=== PATIENT | female | born 1940 | race African-American/Black ===

== ENCOUNTER 2017-02-14 03:07 | Emergency (ER) | payer BC, OTHER ==
[2017-02-14 04:10] VITALS: TEMP 98.2; BMI 32.1
--- NOTE | 2017-02-14 04:30 | PDOC ---
History of Present Illness - General History Source: Patient Exam Limitations: No Limitations - History of Present Illness Initial Comments: 02/14/17 05:03 The patient is a 76-year-old female, with a significant past medical history of asthma, gerd, HTN, anxiety, and depression, who presents to the ED with complaints of nausea, vomiting, shortness of breath due to withdrawal from her klonopin medication. The patient has not been on her medication for 5 days since she has not been able to get a prescription for the medication. She denies any dizziness or lightheadedness. Denies any fever, chills, diarrhea , or abdominal pain. <Margie Hinojosa - Last Filed: 02/14/17 05:37> <Jade Mcneal - Last Filed: 02/15/17 06:39> - General Chief Complaint: Chronic pain Stated Complaint: WITHDRAWAL Time Seen by Provider: 02/14/17 03:32 Past History <Margie Hinojosa - Last Filed: 02/14/17 05:37> - Past Medical History COPD: No Psychiatric Problems: Yes (Depression, anxiety) Other medical history: S spine, tendonitis, bursitis, arthritis - Suicide/Smoking/Psychosocial Hx Smoking History: Current some day smoker Have you smoked in the past 12 months: No Number of Cigarettes Smoked Daily: 3 Information on smoking cessation initiated: No Hx Alcohol Use: No Drug/Substance Use Hx: No Substance Use Type: None <Jade Mcneal - Last Filed: 02/15/17 06:39> - Past Medical History Allergies/Adverse Reactions: Allergies Allergy/AdvReac Type Severity Reaction Status Date / Time No Known Allergies Allergy Verified 02/14/17 03:34 Home Medications: Ambulatory Orders Clonazepam [Klonopin] 1 mg PO TID 02/14/17 Hydroxyzine Pamoate [Vistaril -] 25 mg PO TID PRN #6 capsule 02/14/17 Isosorbide Mononitrate [Imdur -] 30 mg PO DAILY 02/14/17 Lisinopril [Prinivil] 5 mg PO DAILY 02/14/17 Metoprolol Tartrate [Lopressor -] 25 mg PO DAILY 02/14/17 Montelukast Na [Singulair -] 10 mg PO HS 02/14/17 Omeprazole 20 mg PO DAILY 02/14/17 Venlafaxine HCl ER [Effexor Xr -] 75 mg PO TID 02/14/17 Review of Systems - Review of Systems Able to Perform ROS?: Yes Comments:: 02/14/17 05:04 CONSTITUTIONAL: Absent: fever, no chills, no fatigue EYES: Absent: visual changes ENT: Absent: ear pain, no sore throat CARDIOVASCULAR: Absent: chest pain, no palpitations RESPIRATORY: Present: shortness of breath Absent: cough GI: Absent: abdominal pain, no nausea, no vomiting, no constipation, no diarrhea GENITOURINARY: Absent: dysuria, no frequency, no hematuria MUSKULOSKELETAL: Absent: back pain, no arthralgia, no myalgia SKIN: Absent: rash NEURO: Absent: headache <Margie Hinojosa - Last Filed: 02/14/17 05:37> *Physical Exam - Vital Signs Last Vital Signs Temp Pulse Resp BP Pulse Ox 98.2 F 64 18 153/91 100 02/14/17 03:34 02/14/17 03:34 02/14/17 03:34 02/14/17 03:34 02/14/17 03:34 - Physical Exam Comments: 02/14/17 05:05 GENERAL: Well-appearing, well-nourished. No apparent distress. HEENT: Normocephalic, atraumatic. PERRL, EOM intact. CARDIOVASCULAR: Normal S1, S2. Regular rate and rhythm. PULMONARY: Clear to auscultation bilaterally. ABDOMEN: Soft, non-distended, non-tender. EXTREMITIES: Normal ROM in all four extremities. No gross deformities. SKIN: Warm, dry. No rash NEUROLOGICAL: No focal neurological deficits. <Margie Hinojosa - Last Filed: 02/14/17 05:37> - Vital Signs Last Vital Signs Temp Pulse Resp BP Pulse Ox 98.2 F 64 18 153/91 100 02/14/17 03:34 02/14/17 03:34 02/14/17 03:34 02/14/17 03:34 02/14/17 03:34 <Jade Mcneal - Last Filed: 02/15/17 06:39> ED Treatment Course - LABORATORY CBC & Chemistry Diagram: 02/14/17 06:35 02/14/17 06:35 <Jade Mcneal - Last Filed: 02/15/17 06:39> Medical Decision Making - Medical Decision Making 02/14/17 07:12 Pt understands that I will not be giving her klonopin. Instead Vistaril. We are checking labs and UTOX. Pt will be encouraged to go to detox once her workup is complete. <Jade Mcneal - Last Filed: 02/15/17 06:39> *DC/Admit/Observation/Transfer - Attestations Scribe Attestion: 02/14/17 05:05 Documentation prepared by Margie Hinojosa, acting as medical management specialist for Jade Mcneal MD. <Margie Hinojosa - Last Filed: 02/14/17 05:37> <Jade Mcneal - Last Filed: 02/15/17 06:39> Diagnosis at time of Disposition: Marijuana use, Anxiety - Discharge Dispostion Disposition: HOME Condition at time of disposition: Stable - Prescriptions Prescriptions: Hydroxyzine Pamoate [Vistaril -] 25 mg PO TID PRN #6 capsule PRN Reason: Anxiety - Referrals Referrals: Marcos Christie MD [Primary Care Provider] - - Patient Instructions Printed Discharge Instructions: DI for Anxiety -- Adult, DI for Adverse Drug Reaction -- Other Additional Instructions: Please take all meds as prescribed. Please stop smoking marijuana. Please follow up with your PMD as scheduled.
[2017-02-14] MEDS ORDERED: SODIUM CHLORIDE 0.9% 1000 ML INFUS.BAG IV ONE (05:37)
[2017-02-14] MEDS ORDERED: hydrOXYzine PAMOATE 50 MG CAPSULE (FP) PO ONE (05:54)
[2017-02-14] MEDS ORDERED: hydrOXYzine PAMOATE 25 MG CAPSULE (FP) PO ONE (06:15)
[2017-02-14 06:48] LABS: BASO % 0.2 % (0-2.0); EOS % 0.1 % (0-4.5); MCH 29.5 pg (25.7-33.7); MCHC 32.7 g/dl (32.0-36.0); MEAN CELL VOLUME 90.2 fl (80-96); MEAN PLT VOLUME 10.1 fl (7.5-11.1); MONO # 0.4 # (3.8-10.2); NEUT # 10.3 # (42.8-82.8); PLATELET COUNT 236 K/MM3 (134-434); RDW 14.3 % (11.6-15.6); WHITE BLOOD COUNT 11.7 K/mm3 (4.0-10.0)
[2017-02-14 07:13] LABS: ALBUMIN 3.8 g/dl (3.4-5.0); ANION GAP 7 (8-16); BILIRUBIN,TOTAL 0.3 mg/dL (0.2-1.0); CALCIUM 8.3 mg/dL (8.5-10.1); CO2 27 mmol/L (21-32); CREATININE 0.6 mg/dL (0.55-1.02); GLUCOSE,RANDOM 187 mg/dL (74-106); SGPT/ALT 22 U/L (12-78); TOT PROT 6.6 g/dl (6.4-8.2)
[2017-02-14 07:14] LABS: ALK PHOS 102 U/L (45-117)
[2017-02-14 07:28] LABS: SGOT/AST 21 U/L (15-37)
--- NOTE | 2017-02-14 08:02 | PDOC ---
*Physical Exam - Vital Signs Last Vital Signs Temp Pulse Resp BP Pulse Ox 98.2 F 64 18 153/91 100 02/14/17 03:34 02/14/17 03:34 02/14/17 03:34 02/14/17 03:34 02/14/17 04:44 - Physical Exam Comments: 02/14/17 08:00 gen: aaox3, nad heart: +s1s2 reg lungs: cta b/l abd: soft, nt/nd ext: no c/c/e psych: mildly anxious ED Treatment Course - LABORATORY CBC & Chemistry Diagram: 02/14/17 06:35 02/14/17 06:35 - ADDITIONAL ORDERS Additional order review: Laboratory Results 02/14/17 06:35 Sodium 141 Potassium 3.6 Chloride 107 Carbon Dioxide 27 Anion Gap 7 L BUN 7 Creatinine 0.6 Creat Clearance w eGFR > 60 Random Glucose 187 H Calcium 8.3 L Total Bilirubin 0.3 AST 21 ALT 22 Alkaline Phosphatase 102 Total Protein 6.6 Albumin 3.8 02/14/17 06:35 RBC 4.76 MCV 90.2 MCHC 32.7 RDW 14.3 MPV 10.1 Neutrophils % 88.0 H Lymphocytes % 8.3 Monocytes % 3.4 L Eosinophils % 0.1 Basophils % 0.2 - Medications Given in the ED: ED Medications Discontinued Medications Generic Name Dose Route Start Last Admin Trade Name Henryq PRN Reason Stop Dose Admin Hydroxyzine Pamoate 50 mg 02/14/17 06:15 02/14/17 06:26 Vistaril - PO 02/14/17 06:16 50 mg ONCE ONE Administration Sodium Chloride 500 ml 02/14/17 05:37 02/14/17 06:16 Normal Saline - IV 02/14/17 05:38 500 ml ONCE ONE Administration Medical Decision Making - Medical Decision Making 02/14/17 08:01 a/p: 76yo female with klonopin use daily who ran out of klonopin x 1 week -given vistaril overnight and feeling better -requesting to go to detox. 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 02/14/17 08:37 pt utox negative for benzos +THC discussed with patient who states she does smoke marijuana no benzo so no longer withdrawal from benzos has appt with PMD for thursday stable for d/c to home discussed with the patient and the daughter all reasons to return to the ED and need for follow up with her PMD. Will give small Rx for vistaril to help with anxiety over the weekend. Has effexor at home discussed stopping using THC. 02/14/17 08:41 detox updated on plan *DC/Admit/Observation/Transfer Diagnosis at time of Disposition: Marijuana use, Anxiety - Discharge Dispostion Disposition: HOME Condition at time of disposition: Stable Admit: No - Prescriptions Prescriptions: Hydroxyzine Pamoate [Vistaril -] 25 mg PO TID PRN #6 capsule PRN Reason: Anxiety - Referrals Referrals: Marcos Christie MD [Primary Care Provider] - - Patient Instructions Printed Discharge Instructions: DI for Anxiety -- Adult, DI for Adverse Drug Reaction -- Other Additional Instructions: Please take all meds as prescribed. Please stop smoking marijuana. Please follow up with your PMD as scheduled. - Post Discharge Activity
[2017-02-14 08:08] LABS: URINE MARIJUANA THC POSITIVE ng/ml (CUTOFF=50)
[2017-02-14 08:35] LABS: CPK 62 IU/L (26-192); TROPONIN I < 0.02 ng/ml (0.00-0.05)
[2017-02-14 09:11] VITALS: BP 149/70; PULSE 91
--- NOTE | 2017-02-14 16:31 | EKG ---
Test Reason : Blood Pressure : / mmHG Vent. Rate : 089 BPM Atrial Rate : 089 BPM P-R Int : 118 ms QRS Dur : 062 ms QT Int : 366 ms P-R-T Axes : 040 034 040 degrees QTc Int : 445 ms POOR DATA QUALITY, INTERPRETATION MAY BE ADVERSELY AFFECTED NORMAL SINUS RHYTHM NONSPECIFIC ST ABNORMALITY ABNORMAL ECG WHEN COMPARED WITH ECG OF 15-DEC-2005 07:43, NON-SPECIFIC CHANGE IN ST SEGMENT IN ANTERIOR LEADS Confirmed by KEHINDE DING MD ([id number]) on 02/14/2017 4:31:18 PM Referred By: Confirmed By:KEHINDE DING MD
== END 2017-02-14 09:11 | disposition home or self-care (01) ==
LOC: JER 03:07
DX: F12.10 Cannabis abuse, uncomplicated (principal); F13.10 Sedative, hypnotic or anxiolytic abuse, uncomplicated; F41.8 Other specified anxiety disorders
CPT/HCPCS: 36415; 80053; 80307; 82550; 84484; 85025; 93005; 93010; 99285-25

== ENCOUNTER 2017-02-19 05:23 | Emergency (ER) | payer OTHER ==
[2017-02-19 05:34] VITALS: BMI 23.6
--- NOTE | 2017-02-19 05:43 | PDOC ---
Attending Attestation - HPI HPI: 02/19/17 05:48 76 y.o female with significant PMHx of anxiety, depression, asthma, HTN, and GERD, who presents to the emergency room BIBA complaining of shortness of breath and shakiness stating that she ran out of vistaril prescription. Pt was seen in the ED 2 weeks ago after withdrawing from Klonapin medications. She was given a prescription of vistaril, but has since run out. <Leena Mcdonough - Last Filed: 02/19/17 05:48> - Resident Resident Name: Gagan Rojas - ED Attending Attestation I have performed the following: I have examined & evaluated the patient, The case was reviewed & discussed with the resident, I agree w/resident's findings & plan, Exceptions are as noted - Physicial Exam PE: 02/19/17 19:44 Physical Exam General Appearance: Yes: Appropriately Dressed. No: Apparent Distress, Intoxicated HEENT: positive: EOMI, ROSIE, Normal ENT Inspection, Normal Voice, TMs Normal, Pharynx Normal. negative: Pale Conjunctivae, Photophobia, Scleral Icterus (R), Scleral Icterus (L) Neck: positive: Trachea midline, Normal Thyroid, Supple. negative: Tender, Rigid, Carotid bruit, Stridor, Lymphadenopathy (R), Lymphadenopathy (L), Thyromegaly Respiratory/Chest: positive: Lungs Clear, Normal Breath Sounds. negative: Chest Tender, Respiratory Distress, Accessory Muscle Use, Labored Respiration, RES, Crackles, Rales, Rhonchi, Stridor, Wheezing, Dullness Cardiovascular: positive: Regular Rhythm, Regular Rate, S1, S2. negative: Edema , JVD, Murmur, Bradycardia, Tachycardia Vascular Pulses: Dorsalis-Pedis (R): 2+, Doralis-Pedis (L): 2+ Gastrointestinal/Abdominal: positive: Normal Bowel Sounds, Flat, Soft. negative : Tender, Organomegaly, Pulsatile Mass, Increased Bowel Sounds, Decreased BS, Distended, Guarding, Rebound, Hernia, Hepatomegaly, Spleenomegaly Lymphatic: negative: Adenopathy, Tenderness Musculoskeletal: positive: Normal Inspection. negative: CVA Tenderness, Decreased Range of Motion Extremity: positive: Normal Capillary Refill, Normal Inspection, Normal Range of Motion, Pelvis Stable. negative: Tender, Pedal Edema, Swelling, Erythema Integumentary: positive: Normal Color, Dry, Warm. negative: Cyanotic, Erythema , Jaundice, Rash Neurologic: positive: crushed stone grader II-XII NML intact, Fully Oriented, Alert, Normal Mood/ Affect, Motor Strength 5/5. negative: EOM Palsy, Facial Droop, Sensory Deficit - Medical Decision Making 02/19/17 19:44 Pt treated and released <Korey Gonzalez - Last Filed: 02/19/17 19:45>
[2017-02-19] MEDS ORDERED: hydrOXYzine PAMOATE 25 MG CAPSULE (FP) PO ONE (05:44)
--- NOTE | 2017-02-19 05:44 | PDOC ---
History of Present Illness - General Chief Complaint: Psychiatric Stated Complaint: ANXIETY Time Seen by Provider: 02/19/17 05:36 - History of Present Illness Initial Comments: 02/19/17 05:55 The patient is a 76 year old female with a history of anxiety, depression, HTN, who presents for evaluation of anxiety. The patient was recently seen in the ED on 02/14 for klonapin withdrawal and anxiety. She was discharged at that time on vistiril. The patient reports that she ran out of the vistiril several days ago and since then, has been experiencing increasing anxiety and feelings of doom. She reports that it worsened this morning prompting her presentation to the ED this morning. She denies fevers, chills, chest pain, abdominal pain, or changes with urination or bowel movements. Past History - Past Medical History Allergies/Adverse Reactions: Allergies Allergy/AdvReac Type Severity Reaction Status Date / Time No Known Allergies Allergy Verified 02/19/17 05:30 Home Medications: Ambulatory Orders Hydroxyzine Pamoate [Vistaril -] 25 mg PO TID PRN #6 capsule 02/14/17 Isosorbide Mononitrate [Imdur -] 30 mg PO DAILY 02/14/17 Lisinopril [Prinivil] 5 mg PO DAILY 02/14/17 Metoprolol Tartrate [Lopressor -] 25 mg PO DAILY 02/14/17 Montelukast Na [Singulair -] 10 mg PO HS 02/14/17 Omeprazole 20 mg PO DAILY 02/14/17 Venlafaxine HCl ER [Effexor Xr -] 75 mg PO TID 02/14/17 Hydroxyzine Pamoate [Vistaril -] 25 mg PO TID PRN #15 capsule 02/19/17 COPD: No Psychiatric Problems: Yes (Depression, anxiety) - Suicide/Smoking/Psychosocial Hx Smoking History: Current some day smoker Have you smoked in the past 12 months: Yes Number of Cigarettes Smoked Daily: 3 Information on smoking cessation initiated: No Hx Alcohol Use: No Drug/Substance Use Hx: No Substance Use Type: None Review of Systems - Review of Systems Comments:: 02/19/17 06:00 Constitutional: No fevers, chills, fatigue, malaise HEENT: No Rhinorrhea, nasal congestion, visual changes Cardiovascular: No chest pain, syncope, palpitations, lightheadedness Respiratory: No Cough, SOB, Hemoptysis, Gastrointestinal: No Abdominal pain, Nausea, Vomiting, Constipation, Diarrhea, Melena Genitourinary: No Dysuria, Frequency, Urgency, Hesitancy, Hematuria, Flank pain Musculoskeletal: No Myalgia, arthralgia Skin: No rashes, bruising, pallor Neurologic: No Headache, Dizziness, Numbness, Weakness, or Tingling Psychiatric: Anxiety. No Hallucinations. No SI or HI *Physical Exam - Vital Signs Last Vital Signs Temp Pulse Resp BP Pulse Ox 98.8 F 102 H 28 H 174/110 98 02/19/17 05:32 02/19/17 05:32 02/19/17 05:32 02/19/17 05:32 02/19/17 05:32 - Physical Exam Comments: 02/19/17 06:02 General Appearance: Nourished. No Apparent Distress HEENT: EOMI, ROSIE. No Pharyngeal Erythema, Tonsillar Exudate, Tonsillar Erythema Neck: No Cervical Lymphadenopathy Respiratory/Chest: Lungs Clear, Normal Breath Sounds. No Crackles, Rales, Rhonchi, Wheezing Cardiovascular: Regular Rhythm, Tachycardic. No Murmur, Gallops, Rubs Gastrointestinal/Abdominal: Normal Bowel Sounds, Soft. No Guarding, Rebound, Tenderness Musculoskeletal: No CVA Tenderness Extremity: Normal Capillary Refill Integumentary: Normal Color, Dry, Warm Neurologic: Fully Oriented, Alert, Normal Mood/Affect, Normal Response, Medical Decision Making - Medical Decision Making 02/19/17 06:02 The patient is a 76 year old female with a history of anxiety, depression, HTN, who presents for evaluation of anxiety. Given the patient's history of increased anxiety after running out of her vistiril, her symptoms are likely due to an anxiety attack. We will treat her here in the ED with vistiril and continue to monitor and reassess. 02/19/17 06:48 Patient signed out to the day team pending reassessment. *DC/Admit/Observation/Transfer Diagnosis at time of Disposition: Anxiety - Discharge Dispostion Disposition: HOME Condition at time of disposition: Good - Prescriptions Prescriptions: Hydroxyzine Pamoate [Vistaril -] 25 mg PO TID PRN #15 capsule PRN Reason: Anxiety - Referrals Referrals: Marcos Christie MD [Primary Care Provider] - - Patient Instructions Printed Discharge Instructions: DI for Anxiety -- Adult Additional Instructions: Please return if you have any new, worsening or concerning symptoms. Please follow up as you've already scheduled for on Thursday. - Post Discharge Activity
[2017-02-19 08:04] VITALS: BP 134/94; PULSE 71; TEMP 97.7
--- NOTE | 2017-02-19 08:40 | PDOC ---
*Physical Exam - Vital Signs Last Vital Signs Temp Pulse Resp BP Pulse Ox 97.7 F 71 17 134/94 99 02/19/17 08:03 02/19/17 08:03 02/19/17 08:03 02/19/17 08:03 02/19/17 08:03 - Physical Exam Comments: 02/19/17 08:37 PSYCH: No SI/HI. Appropriate affect GENERAL: Awake, alert, and fully oriented, in no acute distress HEAD: No signs of trauma, normocephalic, atraumatic EYES: PERRLA, EOMI, sclera anicteric, conjunctiva clear NEUROLOGICAL: Cranial nerves II through XII grossly intact. Normal speech, normal gait, no focal sensorimotor deficits SKIN: Warm, Dry, normal turgor, no rashes or lesions noted. ED Treatment Course - Medications Given in the ED: ED Medications Discontinued Medications Generic Name Dose Route Start Last Admin Trade Name Freq PRN Reason Stop Dose Admin Hydroxyzine Pamoate 25 mg 02/19/17 05:44 02/19/17 05:55 Vistaril - PO 02/19/17 05:45 25 mg ONCE ONE Administration Medical Decision Making - Medical Decision Making 02/19/17 08:[address] Rojas. Patient came in complaining of anxiety. Reassessment pending. Patient reports feeling much better, wants to go home. Denies SI/HI. Asked for prescription renewal of hydroxyzine. Has follow up scheduled for Thursday. *DC/Admit/Observation/Transfer Diagnosis at time of Disposition: Anxiety - Discharge Dispostion Disposition: HOME Condition at time of disposition: Good Admit: No - Prescriptions Prescriptions: Hydroxyzine Pamoate [Vistaril -] 25 mg PO TID PRN #15 capsule PRN Reason: Anxiety - Referrals Referrals: Marcos Christie MD [Primary Care Provider] - - Patient Instructions Printed Discharge Instructions: DI for Anxiety -- Adult Additional Instructions: Please return if you have any new, worsening or concerning symptoms. Please follow up as you've already scheduled for on Thursday. - Post Discharge Activity
== END 2017-02-19 09:13 | disposition home or self-care (01) ==
LOC: JER 05:23
DX: F17.210 Nicotine dependence, cigarettes, uncomplicated (principal); F41.8 Other specified anxiety disorders
CPT/HCPCS: 99282-25

== ENCOUNTER 2017-02-27 16:44 | Inpatient (IN) | payer OTHER, BC ==
--- NOTE | 2017-02-27 17:46 | PDOC ---
History of Present Illness - General Chief Complaint: Chronic pain Stated Complaint: LOWER BACK PAIN Time Seen by Provider: 02/27/17 17:19 History Source: Patient Exam Limitations: No Limitations - History of Present Illness Initial Comments: 02/27/17 17:36 The patient is a 76F with a PMH of anxiety, depression, asthma, HTN, GERD, and chronic back pain who presents to the ED with acutely worsening back pain. The patient states that her back pain worsened this morning, starts in her lower spine and radiates down both her legs and up her spine. She denies saddle anesthesia, IVDU, fever, chills, hx of cancer, incontinence. Past History - Past Medical History Allergies/Adverse Reactions: Allergies Allergy/AdvReac Type Severity Reaction Status Date / Time No Known Allergies Allergy Verified 02/27/17 16:56 Home Medications: Ambulatory Orders Isosorbide Mononitrate [Imdur -] 30 mg PO DAILY 02/14/17 Lisinopril [Prinivil] 5 mg PO DAILY 02/14/17 Metoprolol Tartrate [Lopressor -] 25 mg PO DAILY 02/14/17 Montelukast Na [Singulair -] 10 mg PO HS 02/14/17 Omeprazole 20 mg PO DAILY 02/14/17 Venlafaxine HCl ER [Effexor Xr -] 75 mg PO TID 02/14/17 Hydroxyzine Pamoate [Vistaril -] 25 mg PO TID PRN #15 capsule 02/19/17 COPD: No Psychiatric Problems: Yes (Depression, anxiety) - Suicide/Smoking/Psychosocial Hx Smoking History: Current some day smoker Have you smoked in the past 12 months: Yes Number of Cigarettes Smoked Daily: 3 Information on smoking cessation initiated: No Hx Alcohol Use: No Drug/Substance Use Hx: No Substance Use Type: None Review of Systems - Review of Systems Able to Perform ROS?: Yes Comments:: 02/27/17 23:21 GENERAL/CONSTITUTIONAL: No fever or chills. No weakness. HEAD, EYES, EARS, NOSE AND THROAT: No change in vision. No ear pain or discharge. No sore throat. GASTROINTESTINAL: No nausea, vomiting, diarrhea, constipation, or abdominal pain. GENITOURINARY: No dysuria, frequency, hematuria, or change in urination. CARDIOVASCULAR: No chest pain, palpitations, or lightheadedness. RESPIRATORY: No cough, wheezing, shortness of breath, or hemoptysis. MUSCULOSKELETAL: Positive for back pain. No joint or muscle swelling or pain. SKIN: No rash or lesions. NEUROLOGIC: No headache, numbness, tingling, weakness, loss of consciousness, or change in strength/sensation. ENDOCRINE: No increased thirst. No abnormal weight change. HEMATOLOGIC/LYMPHATIC: No anemia, easy bleeding, or history of blood clots. ALLERGIC/IMMUNOLOGIC: No hives or skin allergy. Is the patient limited Frisian proficient: No *Physical Exam - Vital Signs Last Vital Signs Temp Pulse Resp BP Pulse Ox 98.7 F 87 18 153/74 97 02/27/17 16:45 02/27/17 16:45 02/27/17 16:45 02/27/17 16:45 02/27/17 16:45 - Physical Exam Comments: 02/27/17 23:23 GENERAL: Well developed, well nourished. Awake and alert. In mild distress, bedbound. HEENT: Normocephalic, atraumatic. Hearing grossly normal. Moist mucous membranes. NECK: Supple. Full ROM. No JVD. CARDIOVASCULAR: Regular rate and rhythm. No murmurs, rubs, or gallops. PULMONARY: No evidence of respiratory distress. Lungs clear to auscultation bilaterally. ABDOMINAL: Soft. Non-tender. Non-distended. No rebound or guarding. No organomegaly. Normoactive bowel sounds. GENITOURINARY: No CVA tenderness bilaterally. MUSCULOSKELETAL: Tenderness to palpation over L spine. EXTREMITIES: No cyanosis. No clubbing. No edema. No calf tenderness. SKIN: Warm and dry. Normal capillary refill. No rashes. No jaundice. NEUROLOGICAL: Alert, awake, appropriate. Cranial nerves 2-12 intact. Normal speech. PSYCHIATRIC: Cooperative. Good eye contact. Appropriate mood and affect. ED Treatment Course - LABORATORY CBC & Chemistry Diagram: 02/27/17 18:25 02/27/17 18:25 Medical Decision Making - Medical Decision Making 02/27/17 21:15 The patient is a 76F with a PMH of chronic back pain and anxiety who presents with acutely worsening back pain. I am concerned for a fracture, acute cord syndrome, and UTI. CT lumbar spine read: Mild compression of T12 superior endplate, likely recent with minimal retropulsion of its posterior /superior margin and without any significant compromise of the spinal canal. No other compression fracture or subluxation are identified. Multilevel degenerative disc disease in the lumbar spine, as described above. Will give antibiotics for UTI and give toradol for pain control. 02/27/17 23:25 Patient comfortable on reassessment but then states she has continuing pain. 02/27/17 23:46 Patient's pain has not resolved. Will admit for intractable pain. Dr. Jones has been paged. 02/28/17 00:25 Dr. Jones states he admits pt's to hospitalist. Hospitalist paged. *DC/Admit/Observation/Transfer Diagnosis at time of Disposition: T12 compression fracture, Anxiety - Discharge Dispostion Admit: Yes - Referrals - Patient Instructions - Post Discharge Activity
[2017-02-27] MEDS ORDERED: KETOROLAC TROMETHAMINE 30 MG/1 ML VIAL IVPUSH ONE (18:06)
[2017-02-27 18:34] LABS: BASO % 0.4 % (0-2.0); EOS % 0.8 % (0-4.5); HEMOGLOBIN 14.1 GM/dL (10.7-15.3); LYMPH % 13.9 % (8-40); MCH 29.2 pg (25.7-33.7); MCHC 32.9 g/dl (32.0-36.0); MEAN CELL VOLUME 88.8 fl (80-96); MEAN PLT VOLUME 9.1 fl (7.5-11.1); MONO % 7.7 % (3.8-10.2); NEUT % 77.2 % (42.8-82.8); PLATELET COUNT 296 K/MM3 (134-434); RBC 4.84 M/mm3 (3.60-5.2); RDW 13.7 % (11.6-15.6); WHITE BLOOD COUNT 14.4 K/mm3 (4.0-10.0)
[2017-02-27] MEDS ORDERED: KETOROLAC TROMETHAMINE 30 MG/1 ML VIAL ONE (18:54)
--- NOTE | 2017-02-27 18:54 | PDOC ---
Attending Attestation - HPI HPI: 02/27/17 23:01 The patient is a 76 year old female with past medical history of hypertension, GERD, asthma, anxiety, depression and chronic back pain who presents to the ED with 1 day of worsening back pain. She reports her pain is in her lower back and states it radiates down her bilateral lower extremities and up her spine. The patient states her pain is causing her to be bedridden. She denies any bowel or bladder incontinence. She denies trauma. She also reports palpitations since running out of her klonipin 1 week ago. Pt has been in the ED twice since then for anxiety and withdrawal symptoms, has not sought detox at [facility] because she states she was not told to (pt was advised to f/u with [facility] per our EMR). She denies any fever, chills, nausea, vomiting, diarrhea, cough, SOB, urinary symptoms. PCP: Dr. Jones - Physicial Exam PE: 02/27/17 23:02 "GENERAL: Awake, alert, and fully oriented, in no acute distress HEAD: No signs of trauma EYES: PERRLA, EOMI, sclera anicteric, conjunctiva clear ENT: Auricles normal inspection, hearing grossly normal, nares patent, oropharynx clear without exudates. Moist mucosa NECK: Normal ROM, supple, no lymphadenopathy, JVD, or masses LUNGS: Breath sounds equal, clear to auscultation bilaterally. No wheezes, and no crackles HEART: Regular rate and rhythm, normal S1 and S2, no murmurs, rubs or gallops ABDOMEN: Soft, nontender, normoactive bowel sounds. No guarding, no rebound. No masses EXTREMITIES: Normal range of motion, no edema. No clubbing or cyanosis. No cords, erythema, or tenderness NEUROLOGICAL: Normal speech, cranial nerves intact, negative pronator drift, 5/ 5 strength in all 4 extremities, normal sensation to light touch in all 4 extremities, normal cerebellar exam, normal reflexes and tone. Pt reports she is unable to walk due to back pain. BACK: no midline cervical ttp. + lower thoracic and lumbar ttp SKIN: Warm, Dry, normal turgor, no rashes or lesions noted. " - Medical Decision Making 02/27/17 23:02 Documentation prepared by Maribell Fontaine, acting as certified medical dosimetrist for Raheem Baldwin MD. <Maribell Fontaine - Last Filed: 02/27/17 23:01> - Resident Resident Name: Dorian Cantu - ED Attending Attestation I have performed the following: I have examined & evaluated the patient, The case was reviewed & discussed with the resident, I agree w/resident's findings & plan, Exceptions are as noted - Medical Decision Making 02/28/17 01:52 76-year-old female with chronic back pain presents with acute on chronic lower back pain and reports she is unable to walk due to the pain. Denies weakness, urinary or stool incontinence or retention. On exam the patient has normal LE reflexes with normal strength, but does have midline thoracic and lumbar tenderness to palpation. Blood work unremarkable, CT scan with mild compression of T12 endplate and urinalysis with possible UTI. Patient given Bactrim for UTI. Despite Toradol and Tylenol 3, we've been unable to adequately control the patient's pain and she continues to be unable to ambulate due to pain. She reports that her back pain has gotten worse since she stopped taking Klonopin, it's possible that she has some superimposed withdrawal as well. Given her intractable back pain, we have admitted her to the hospitalist Dr. Grossman. Case discussed in detail with admitting physician including history, physical exam and ancillary studies. Admitting physician has assumed care for the patient, will follow all pending diagnostics and will complete the evaluation and treatment. <Raheem Baldwin - Last Filed: 02/28/17 01:58> Discharge Disposition - Discharge Dispostion Last Admission D/C Date: 12/15/05 Admit: Yes <Raheem Baldwin - Last Filed: 02/28/17 01:58> - Diagnosis Back pain - Discharge Dispostion Condition at time of disposition: Stable
[2017-02-27 18:56] LABS: ALBUMIN 3.7 g/dl (3.4-5.0); ANION GAP 8 (8-16); BILIRUBIN,TOTAL 0.5 mg/dL (0.2-1.0); BLOOD UREA NITROGEN 13 mg/dL (7-18); CALCIUM 9.3 mg/dL (8.5-10.1); CHLORIDE 99 mmol/L (98-107); CO2 30 mmol/L (21-32); CREATININE 0.8 mg/dL (0.55-1.02); GLUCOSE,RANDOM 99 mg/dL (74-106); POTASSIUM 3.3 mmol/L (3.5-5.1); SGOT/AST 25 U/L (15-37); SGPT/ALT 31 U/L (12-78); SODIUM 137 mmol/L (136-145); TOT PROT 6.7 g/dl (6.4-8.2)
[2017-02-27 18:57] LABS: ALK PHOS 111 U/L (45-117)
[2017-02-27 19:36] LABS: URINE APPEARANCE SLCLOUDY; URINE BILIRUBIN NEGATIVE (NEGATIVE); URINE BLOOD 3+ (NEGATIVE); URINE COLOR LTYELLOW; URINE GLUCOSE (UA) NEGATIVE (NEGATIVE); URINE KETONE NEGATIVE (NEGATIVE); URINE LEUK ESTERASE TRACE (NEGATIVE); URINE NITRITE NEGATIVE (NEGATIVE); URINE PROTEIN NEGATIVE (NEGATIVE); URINE UROBILINOGEN NEGATIVE mg/dL (0.2-1.0)
[2017-02-27 19:49] LABS: EPI CELLS RARE /HPF (FEW); URINE BACTERIA FEW /hpf (NONE SEEN); URINE MUCUS RARE
[2017-02-27] MEDS ORDERED: SULFAMETHOXAZOLE/TRIMETHOPRIM 800MG/160MG D.S. TABLET PO ONE (21:18)
[2017-02-27] MEDS ORDERED: SULFAMETHOXAZOLE/TRIMETHOPRIM 800MG/160MG D.S. TABLET ONE (21:35)
[2017-02-27] MEDS ORDERED: ACETAMINOPHEN WITH CODEINE 300MG/30MG TABLET PO ONE (22:14)
[2017-02-27] MEDS ORDERED: ACETAMINOPHEN WITH CODEINE 300MG/30MG TABLET ONE (22:47)
[2017-02-28] MEDS ORDERED: DOCUSATE SODIUM 100 MG CAPSULE (FP) PO PRN (02:06)
[2017-02-28] MEDS ORDERED: ONDANSETRON 4 MG/2 ML VIAL IVPUSH PRN (02:06)
[2017-02-28] MEDS ORDERED: morphine CARPU-JECT 10 MG/1 ML DISP.SYRIN IVPUSH PRN (02:06)
[2017-02-28] MEDS ORDERED: POTASSIUM CHLORIDE ORAL LIQUID 20 MEQ/15 ML PO ONE (02:19)
--- NOTE | 2017-02-28 02:40 | HP ---
CHIEF COMPLAINT: Back pain PCP: Dr Jones HISTORY OF PRESENT ILLNESS: 76 y/o Female with history of chronic back pain , presented to ED c/o shooting right sided back pain with radiation to the legs. Patient had recent fall in bathroom at home. Pain 10/10 in intensity and intermittent for one day. Patient has been bid ridden due to pain and denies urinary or fecal incontinence, loss of motor function or numbness. ER course was notable for: (1) CT- mild compression fracture T12 (2) Bactrim given - for suspected UTI (3) Recent Travel: None PAST MEDICAL HISTORY: HTN, GERD, Asthma, Anxiety, depression and chronic back pain. PAST SURGICAL HISTORY: Social History: Smokin/2 ppd for 60 years, denies Alcohol or drugs Family History: Allergies No Known Allergies Allergy (Verified 02/27/17 16:56) HOME MEDICATIONS: Home Medications Medication Instructions Recorded Isosorbide Mononitrate [Imdur -] 30 mg PO DAILY 02/14/17 Lisinopril [Prinivil] 5 mg PO DAILY 02/14/17 Metoprolol Tartrate [Lopressor -] 25 mg PO DAILY 02/14/17 Montelukast Na [Singulair -] 10 mg PO HS 02/14/17 Omeprazole 20 mg PO DAILY 02/14/17 Venlafaxine HCl ER [Effexor Xr -] 75 mg PO TID 02/14/17 Hydroxyzine Pamoate [Vistaril -] 25 mg PO TID PRN #15 capsule 02/19/17 REVIEW OF SYSTEMS CONSTITUTIONAL: Absent: fever, chills, diaphoresis, generalized weakness, malaise, loss of appetite, weight change HEENT: Absent: rhinorrhea, nasal congestion, throat pain, throat swelling, difficulty swallowing, mouth swelling, ear pain, eye pain, visual changes CARDIOVASCULAR: Absent: chest pain, syncope, palpitations, irregular heart rate, lightheadedness , peripheral edema RESPIRATORY: Absent: cough, shortness of breath, dyspnea with exertion, orthopnea, wheezing, stridor, hemoptysis GASTROINTESTINAL: Absent: abdominal pain, abdominal distension, nausea, vomiting, diarrhea, constipation, melena, hematochezia GENITOURINARY: Absent: dysuria, frequency, urgency, hesitancy, hematuria, flank pain, genital pain MUSCULOSKELETAL: back pain Absent: myalgia, arthralgia, joint swelling, neck pain SKIN: Absent: rash, itching, pallor HEMATOLOGIC/IMMUNOLOGIC: Absent: easy bleeding, easy bruising, lymphadenopathy, frequent infections ENDOCRINE: Absent: unexplained weight gain, unexplained weight loss, heat intolerance, cold intolerance NEUROLOGIC: unsteady gait, Absent: headache, focal weakness or paresthesias, dizziness, seizure, mental status changes, bladder or bowel incontinence PSYCHIATRIC: depression Absent: anxiety, , suicidal or homicidal ideation, hallucinations. PHYSICAL EXAMINATION Vital Signs - 24 hr 02/27/17 02/27/17 16:45 23:04 Temperature 98.7 F 97.7 F Pulse Rate 87 Pulse Rate [ 89 Left Apical] Respiratory 18 18 Rate Blood Pressure 153/74 Blood Pressure 130/72 [Right Arm] O2 Sat by Pulse 97 98 Oximetry (%) GENERAL: Awake, alert, and fully oriented, in acute distress. HEAD: Normal with no signs of trauma. EYES: Pupils equal, round and reactive to light, extraocular movements intact, sclera anicteric, conjunctiva clear. right lid wart. EARS, NOSE, THROAT: Ears normal, nares patent, oropharynx clear without exudates. Moist mucous membranes. left lower lip lipoma NECK: Normal range of motion, supple without lymphadenopathy, JVD, or masses. LUNGS: Breath sounds equal, clear to auscultation bilaterally. No wheezes, and no crackles. No accessory muscle use. HEART: Regular rate and rhythm, normal S1 and S2 without murmur, rub or gallop. ABDOMEN: Soft, nontender, not distended, normoactive bowel sounds, no guarding, no rebound, no masses. No hepatomegaly or splenomegaly. MUSCULOSKELETAL: Limited motion due to pain. No bony deformities or tenderness. No CVA tenderness. Paraspinal and spinal tenderness at level t10-L1. UPPER EXTREMITIES: 2+ pulses, warm, well-perfused. No cyanosis. No clubbing. No peripheral edema. LOWER EXTREMITIES: 2+ pulses, warm, well-perfused. No calf tenderness. No peripheral edema. NEUROLOGICAL: Cranial nerves II-XII intact. Normal speech. Gait not assessed. PSYCHIATRIC: Cooperative. Appropriate mood and affect. SKIN: Warm, dry, normal turgor, no rashes or lesions noted, normal capillary refill. Laboratory Results - last 24 hr 02/27/17 02/27/17 02/27/17 18:25 18:25 19:24 WBC 14.4 H RBC 4.84 Hgb 14.1 Hct 43.0 MCV 88.8 MCH 29.2 MCHC 32.9 RDW 13.7 Plt Count 296 D MPV 9.1 Neutrophils % 77.2 Lymphocytes % 13.9 D Monocytes % 7.7 D Eosinophils % 0.8 D Basophils % 0.4 Sodium 137 Potassium 3.3 L Chloride 99 Carbon Dioxide 30 Anion Gap 8 BUN 13 D Creatinine 0.8 D Creat Clearance w eGFR > 60 Random Glucose 99 D Calcium 9.3 Total Bilirubin 0.5 D AST 25 ALT 31 D Alkaline Phosphatase 111 Total Protein 6.7 Albumin 3.7 Urine Color Ltyellow Urine Appearance Slcloudy Urine pH 7.0 Ur Specific [place] 1.006 Urine Protein Negative Urine Glucose (UA) Negative Urine Ketones Negative Urine Blood 3+ H Urine Nitrite Negative Urine Bilirubin Negative Urine Urobilinogen Negative Ur Leukocyte Esterase Trace Urine WBC (Auto) 18 Urine RBC (Auto) 5 Ur Epithelial Cells Rare Urine Bacteria Few Urine Mucus Rare ASSESSMENT/PLAN: Acute on chronic back pain with compression fracture @ T12. Baclofen 10mg TID Gabapentin 200mg TID Morphine 0.5 mg q4h prn Dulcolax 100mg tid PRN Ortho consult Fall risk precautions Anxiety not controlled as patient is not taking her Klonopin, will restart at 0.25mg BID and consider Psychiatry consult. HTN- continue home medications GERD- Protonix 40mg PO daily Asymptomatic -for UTI will not continue Abx. DVT prophylaxis Lovenox 30mg daily Confirm medications with pharmacy. Advance directives discussed and patient Full Code Visit type - Emergency Visit Emergency Visit: Yes ED Registration Date: 02/27/17 Care time: The patient presented to the Emergency Department on the above date and was hospitalized for further evaluation of their emergent condition. - New Patient This patient is new to me today: Yes Date on this admission: 03/01/17 - Critical Care Critical Care patient: No
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
[2017-02-28 04:19] VITALS: BMI 29.6
[2017-02-28] MEDS ORDERED: clonazePAM 0.5 MG TABLET PO PRN ×2 (05:54→14:21)
[2017-02-28] MEDS: BACLOFEN 10 MG TABLET (FP) PO SCH ×3 (06:35→21:25)
[2017-02-28] MEDS: GABAPENTIN 100 MG CAPSULE (FP) PO SCH ×3 (06:35→21:24)
[2017-02-28] MEDS: PANTOPRAZOLE 40 MG TABLET (FP) PO SCH (09:13)
[2017-02-28] MEDS: METOPROLOL TARTRATE 25 MG TABLET (FP) PO SCH (09:13)
[2017-02-28] MEDS: ENOXAPARIN NA (PORCINE) 30 MG/0.3 ML DISP.SYRIN SQ SCH (09:13)
[2017-02-28] MEDS: LISINOPRIL 5 MG TABLET (FP) PO SCH (09:13)
[2017-02-28] MEDS: ISOSORBIDE MONONITRATE 30 MG TAB.SR.24H (FP) PO SCH (09:13)
[2017-02-28] MEDS ORDERED: PATIENT'S OWN MEDICATION (NON-FORMULARY) (Omeprazole [Omeprazole] 20 MG) PO SCH (10:00)
[2017-02-28] MEDS: oxyCODONE HCL 5 MG TABLET PO PRN ×2 (11:38→21:25)
[2017-02-28 12:42] LABS: BASO % 0.8 % (0-2.0); EOS % 1.4 % (0-4.5); HEMATOCRIT 44.3 % (32.4-45.2); HEMOGLOBIN 14.3 GM/dL (10.7-15.3); LYMPH % 19.6 % (8-40); MCH 28.7 pg (25.7-33.7); MCHC 32.4 g/dl (32.0-36.0); MEAN CELL VOLUME 88.8 fl (80-96); MEAN PLT VOLUME 9.3 fl (7.5-11.1); MONO % 10.5 % (3.8-10.2); NEUT % 67.7 % (42.8-82.8); PLATELET COUNT 308 K/MM3 (134-434); RBC 4.99 M/mm3 (3.60-5.2); WHITE BLOOD COUNT 10.8 K/mm3 (4.0-10.0)
[2017-02-28 13:11] LABS: ANION GAP 11 (8-16); BLOOD UREA NITROGEN 8 mg/dL (7-18); CALCIUM 9.3 mg/dL (8.5-10.1); CHLORIDE 99 mmol/L (98-107); CO2 29 mmol/L (21-32); CREATININE 0.6 mg/dL (0.55-1.02); GLUCOSE,RANDOM 106 mg/dL (74-106); POTASSIUM 3.8 mmol/L (3.5-5.1); SODIUM 139 mmol/L (136-145)
--- NOTE | 2017-02-28 13:26 | EKG ---
Test Reason : Blood Pressure : / mmHG Vent. Rate : 096 BPM Atrial Rate : 096 BPM P-R Int : 092 ms QRS Dur : 068 ms QT Int : 362 ms P-R-T Axes : 054 048 059 degrees QTc Int : 457 ms POOR DATA QUALITY, INTERPRETATION MAY BE ADVERSELY AFFECTED SINUS RHYTHM WITH SHORT OH WITH PREMATURE SUPRAVENTRICULAR COMPLEXES NONSPECIFIC ST ABNORMALITY ABNORMAL ECG WHEN COMPARED WITH ECG OF 14-FEB-2017 05:15, PREMATURE SUPRAVENTRICULAR COMPLEXES ARE NOW PRESENT Confirmed by LESLIE NOEL MD ([id number]) on 02/28/2017 1:26:11 PM Referred By: Confirmed By:LESLIE NOEL MD
--- NOTE | 2017-02-28 14:27 | CON.PSY ---
Psychiatry Consult Chief Complaint: && year old female with a history of Chronic Arthritis, falls. Patient has associated anxiety and depression from severe pain. Spoke to one of patients daughters. Symptoms: reports: Depressed Mood, Irritability, Anxiety - Previous Psychiatric Treatment Outpatient: Less than 6 mos ago Inpatient: None - Previous Substance Abuse Treatment Outpatient: None Inpatient: None - Reason for Previous Treatment Reason for Previous Treatment: Major Depression, Anxiety or Panic Disorder - Current Medications Current Medications: Active Medications Albuterol/Ipratropium (Duoneb -) 1 amp NEB Q6H PRN PRN Reason: SHORTNESS OF BREATH Baclofen (Lioresal -) 10 mg PO TID [facility] Last Admin: 02/28/17 13:56 Dose: 10 mg Docusate Sodium (Colace -) 100 mg PO TID PRN PRN Reason: CONSTIPATION Stop: 03/14/17 06:00 Enoxaparin Sodium (Lovenox -) 30 mg SQ DAILY [facility] Last Admin: 02/28/17 09:13 Dose: 30 mg Gabapentin (Neurontin -) 200 mg PO TID [facility] Last Admin: 02/28/17 13:56 Dose: 200 mg Isosorbide Mononitrate (Imdur -) 30 mg PO DAILY [facility] Last Admin: 02/28/17 09:13 Dose: 30 mg Lisinopril (Prinivil) 5 mg PO DAILY [facility] Last Admin: 02/28/17 09:13 Dose: 5 mg Metoprolol Tartrate (Lopressor -) 25 mg PO DAILY [facility] Last Admin: 02/28/17 09:13 Dose: 25 mg Montelukast Sodium (Singulair -) 10 mg PO [facility] Morphine Sulfate (Morphine Injection -) 0.5 mg IVPUSH Q4H PRN PRN Reason: PAIN Last Admin: 02/28/17 02:53 Dose: 0.5 mg Ondansetron HCl (Zofran Injection) 4 mg IVPUSH Q6H PRN PRN Reason: NAUSEA Oxycodone HCl (Roxicodone -) 10 mg PO Q6H PRN PRN Reason: PAIN Last Admin: 02/28/17 11:38 Dose: 10 mg Pantoprazole Sodium (Protonix -) 40 mg PO DAILY [facility] Last Admin: 02/28/17 09:13 Dose: 40 mg Venlafaxine HCl (Effexor -) 75 mg PO TID [facility] - Allergies Allergies: Allergies Allergy/AdvReac Type Severity Reaction Status Date / Time No Known Allergies Allergy Verified 02/27/17 16:56 - Current Living Status Usual Living Arrangement: With Child - Current Mental Status Evaluation Appearance: Well Groomed Attitude: Cooperative - Affect Affect: Constrictive Appropriateness: Appropriate to Content - Mood Mood: Anxious, Angry - Speech/Language Expressive: Coherent - Psychomotor Activity Psychomotor Activity: Slowed - Thought Process Thought Process: Intact - Thought Content Hallucinations: Absent Delusions: Absent - Self Perception Self Perception: No Impairment - Cognition Attention: Alert Orientation: Time Memory, Immediate Recall: Intact Memory, Short Term: 2/3 Memory, Remote with Promptin/3 - Concentration Serial Sevens Intact: No Simple Calculations Intact: No - Abstraction Proverb Interpretation: Intact Judgement: Intact - Insight Insight: Intact - Impulse Control Impulse Control: Good Control - Suicidal Ideation Suicidal Ideation: No - Homicidal Ideation Homicidal Ideation: No Assessment/Plan 1) Continue with Effexor 75 mg po tid. 2) Increase Klonapin 0.5 po bi9d PRN 3) patient needs Pain management.
[2017-02-28] MEDS: VENLAFAXINE HCL 75 MG TABLET PO SCH ×2 (16:23→21:25)
--- NOTE | 2017-02-28 17:13 | CON.ID ---
Consult Consult Specialty:: Infectious Disease Reason for Consultation:: leukocytosis, uti - History of Present Illness Chief Complaint: back pain History of Present Illness: This is a 76 y.o. female with PMH of anxiety, depression, asthma, GERD, and HTN presenting with complaints of lower back pain since sustaining a fall at home. She has chronic back pain and normally uses a walker to ambulate but she slipped and fell. She was admitted with c/o worsened back pain with severe sharp pain shooting down both legs and some numbness. She denies LOC or head trauma during the event. In the ER she was noted to have an elevated wbc of 14K and an abnormal u/a suggestive of a UTI. Pt had some recent chills and poor appetite but denies dysuria or fever. 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) Cardio/Vascular: Yes: HTN Pulmonary: Yes: Asthma Gastrointestinal: Yes: GERD Psych: Yes: Anxiety, Depression Musculoskeletal: Yes: Chronic low back pain - Past Surgical History Past Surgical History: Yes: None - Alcohol/Substance Use Hx Alcohol Use: No History of Substance Use: reports: Marijuana (+THC on Urine toxicology as per ED Note on 02/14) - Smoking History Smoking history: Current some day smoker (1/2 ppd since age 16) Have you smoked in the past 12 months: Yes Aproximately how many cigarettes per day: 10 - Social History Usual Living Arrangement: With Child History of Recent Travel: No Home Medications - Allergies Allergies/Adverse Reactions: Allergies Allergy/AdvReac Type Severity Reaction Status Date / Time No Known Allergies Allergy Verified 02/27/17 16:56 - Home Medications Home Medications: Ambulatory Orders Isosorbide Mononitrate [Imdur -] 30 mg PO DAILY 02/14/17 Lisinopril [Prinivil] 5 mg PO DAILY 02/14/17 Metoprolol Tartrate [Lopressor -] 25 mg PO DAILY 02/14/17 Montelukast Na [Singulair -] 10 mg PO HS 02/14/17 Omeprazole 20 mg PO DAILY 02/14/17 Venlafaxine HCl ER [Effexor Xr -] 75 mg PO TID 02/14/17 Hydroxyzine Pamoate [Vistaril -] 25 mg PO TID PRN #15 capsule 02/19/17 Review of Systems - Review of Systems Constitutional: reports: Chills (occasional/nonspecific) Eyes: reports: No Symptoms HENT: reports: No Symptoms Neck: reports: No Symptoms Cardiovascular: reports: No Symptoms Respiratory: reports: No Symptoms Gastrointestinal: reports: No Symptoms Genitourinary: reports: No Symptoms Breasts: reports: No Symptoms Reported Musculoskeletal: reports: Back Pain (chronic but worsened after fall) Integumentary: reports: No Symptoms Neurological: reports: No Symptoms Hematology/Lymphatic: reports: No Symptoms Psychiatric: reports: Anxiety, Depression Pain Intensity: 6 Physical Exam Vital Signs: Vital Signs Temperature 98.4 F 02/28/17 14:49 Pulse Rate 71 02/28/17 14:49 Respiratory Rate 18 02/28/17 08:00 Blood Pressure 154/74 02/28/17 14:49 O2 Sat by Pulse Oximetry (%) 98 02/27/17 23:04 Constitutional: Yes: No Distress, Calm Eyes: Yes: WNL HENT: Yes: Atraumatic Neck: Yes: Supple Cardiovascular: Yes: Regular Rate and Rhythm Respiratory: Yes: CTA Bilaterally Gastrointestinal: Yes: Normal Bowel Sounds, Soft Renal/: Yes: WNL Musculoskeletal: Yes: Back Pain (lower back) Extremities: Yes: WNL Neurological: Yes: Alert, Oriented ...Motor Strength: WNL Psychiatric: Yes: Alert Labs: CBC, BMP 02/28/17 12:18 02/28/17 12:18 Abnormal Lab Results 02/27/17 02/27/17 02/27/17 18:25 18:25 19:24 WBC 14.4 H Monocytes % Potassium 3.3 L Urine Blood 3+ H 02/28/17 12:18 WBC 10.8 H Monocytes % 10.5 H Potassium Urine Blood Imaging - Results Cat Scan: Report Reviewed (T12 fracture) Problem List - Problems (1) Leukocytosis Code(s): D72.829 - ELEVATED WHITE BLOOD CELL COUNT, UNSPECIFIED Assessment/Plan 76 y.o. female with anxiety, chronic back pain admitted s/p fall with worsened back pain. Noted to have leukocytosis, abnormal u/a. possible UTI - collect urine culture stat - once collected, start empiric bactrim DS po BID continue monitor pt currently afebrile, stable
--- NOTE | 2017-02-28 18:10 | CON.ORTH ---
Consult Consult Specialty:: ortho Referred by:: [email or web address] Reason for Consultation:: back pain - History of Present Illness Chief Complaint: back pain History of Present Illness: 76 yo female co chronic lbp which was exaserbated by fall. Now with increased back pain and some pain down back of legs. Denies N/T or weakness. No bowel or bladder changes. No other acute co. 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) Cardio/Vascular: Yes: HTN Pulmonary: Yes: Asthma Gastrointestinal: Yes: GERD Psych: Yes: Anxiety, Depression Musculoskeletal: Yes: Chronic low back pain - Past Surgical History Past Surgical History: Yes: None - Alcohol/Substance Use Hx Alcohol Use: No History of Substance Use: reports: Marijuana (+THC on Urine toxicology as per ED Note on 02/14) - Smoking History Smoking history: Current some day smoker (1/2 ppd since age 16) Have you smoked in the past 12 months: Yes Aproximately how many cigarettes per day: 10 - Social History Usual Living Arrangement: With Child History of Recent Travel: No Home Medications - Allergies Allergies/Adverse Reactions: Allergies Allergy/AdvReac Type Severity Reaction Status Date / Time No Known Allergies Allergy Verified 02/27/17 16:56 - Home Medications Home Medications: Ambulatory Orders Isosorbide Mononitrate [Imdur -] 30 mg PO DAILY 02/14/17 Lisinopril [Prinivil] 5 mg PO DAILY 02/14/17 Metoprolol Tartrate [Lopressor -] 25 mg PO DAILY 02/14/17 Montelukast Na [Singulair -] 10 mg PO HS 02/14/17 Omeprazole 20 mg PO DAILY 02/14/17 Venlafaxine HCl ER [Effexor Xr -] 75 mg PO TID 02/14/17 Hydroxyzine Pamoate [Vistaril -] 25 mg PO TID PRN #15 capsule 02/19/17 Physical Exam for Ortho Vital Signs: Vital Signs Temperature 98.4 F 02/28/17 14:49 Pulse Rate 71 02/28/17 14:49 Respiratory Rate 18 02/28/17 08:00 Blood Pressure 154/74 02/28/17 14:49 O2 Sat by Pulse Oximetry (%) 98 02/27/17 23:04 Constitutional: Yes: Well Nourished, No Distress Neck: Yes: WNL Cardiovascular: Yes: WNL Respiratory: Yes: WNL Gastrointestinal: Yes: WNL (Lumbar spine with mild tenderness. No other tenderness. No pain with SLR. Mild paraspinal spazm. NVI B LE. Normal DTRs and no pathologic reflexes or tension signs. No calf tenderness. ) Labs: CBC, BMP 02/28/17 12:18 02/28/17 12:18 Imaging - Results Cat Scan: Image Reviewed (T12 superior endplate fx without cord involvement) Assessment/Plan IMP: Chronic LBP with likely acute T12 comp fx without neural compromise Rec: Pain Mgt, OOB, PT, Discussed option for Kyphoplasty if symptoms persist after a few weeks or worsen. Discussed dx and tx options with pt.
[2017-02-28] MEDS: SULFAMETHOXAZOLE/TRIMETHOPRIM 800MG/160MG D.S. TABLET PO SCH (21:24)
[2017-02-28] MEDS: MONTELUKAST NA 10 MG TABLET PO SCH (21:25)
[2017-03-01] MEDS: oxyCODONE HCL 5 MG TABLET PO PRN (04:40)
[2017-03-01] MEDS: BACLOFEN 10 MG TABLET (FP) PO SCH ×3 (05:57→21:08)
[2017-03-01] MEDS: VENLAFAXINE HCL 75 MG TABLET PO SCH ×3 (05:57→21:07)
[2017-03-01] MEDS: GABAPENTIN 100 MG CAPSULE (FP) PO SCH ×3 (05:57→21:08)
[2017-03-01 07:14] LABS: HEMATOCRIT 43.5 % (32.4-45.2); HEMOGLOBIN 14.5 GM/dL (10.7-15.3); MCH 29.9 pg (25.7-33.7); MCHC 33.2 g/dl (32.0-36.0); MEAN CELL VOLUME 89.8 fl (80-96); MEAN PLT VOLUME 9.2 fl (7.5-11.1); PLATELET COUNT 306 K/MM3 (134-434); RBC 4.85 M/mm3 (3.60-5.2); WHITE BLOOD COUNT 11.8 K/mm3 (4.0-10.0)
[2017-03-01 08:50] LABS: ANION GAP 8 (8-16); BLOOD UREA NITROGEN 9 mg/dL (7-18); CHLORIDE 103 mmol/L (98-107); CO2 30 mmol/L (21-32); CREATININE 0.9 mg/dL (0.55-1.02); GLUCOSE,RANDOM 140 mg/dL (74-106); POTASSIUM 4.3 mmol/L (3.5-5.1); SODIUM 141 mmol/L (136-145)
[2017-03-01] MEDS: ISOSORBIDE MONONITRATE 30 MG TAB.SR.24H (FP) PO SCH (09:34)
[2017-03-01] MEDS: METOPROLOL TARTRATE 25 MG TABLET (FP) PO SCH (09:34)
[2017-03-01] MEDS: SULFAMETHOXAZOLE/TRIMETHOPRIM 800MG/160MG D.S. TABLET PO SCH ×2 (09:34→21:08)
[2017-03-01] MEDS: DOCUSATE SODIUM 100 MG CAPSULE (FP) PO PRN (09:35)
[2017-03-01] MEDS: ENOXAPARIN NA (PORCINE) 30 MG/0.3 ML DISP.SYRIN SQ SCH (09:35)
[2017-03-01] MEDS: PANTOPRAZOLE 40 MG TABLET (FP) PO SCH (09:35)
[2017-03-01] MEDS: LISINOPRIL 5 MG TABLET (FP) PO SCH (09:35)
[2017-03-01] MEDS ORDERED: INSULIN (NOVOLOG) ASPART 100 UNITS/ML 10ML VIAL ONE (10:16)
--- NOTE | 2017-03-01 10:19 | PN ---
Progress Note (short form) - Note Progress Note: NEUROSURGERY CONSULT DICTATED Chart reviewed CT reviewed Pt examined Htn, GERD, asthma, anxiety, depression, and chronic back pain, peripheral neuropathy c/o shooting right sided back pain with radiation to the legs. Patient landed hard on the toilet backwards at home last week. Pain 10/10 in intensity and intermittent for one day. Denies urinary or fecal incontinence, loss of motor function or new numbness. PE: AF, VSS HEENT- NC/AT, L lip nevus; Cor-RR; Lungs- CTA B; ABd- benign; Ext- no sign of DVT CN- intact; Motor- at least 4+/5 b UE/LE; Sensation- intact LT; DTR- hyporeflexic B LS spine CT- mild T12 superior endplate depression with 10% reduction of vertebral column height; no canal involvement; Broad based L4-5 disc bulge; mild facet hypertrophy Acute T12 sup endplate fx with no canal involvement or new deficit Pain meds/PT/rehab Further vertebral column height reduction likely prior to settling at final vertebral column height at T12 Bracing (TLSO) d/w pt, though pt unsure if she wants it Add lidoderm patch Increase neurontin to 300 tid tomorrow if no significant side effects at current dosage DVT prophylaxis F/U LS spine x-rays iun 2 weeks to assess T12 vertebral column height If persistent pain could consider pain management and/or kyphoplasty
--- NOTE | 2017-03-01 12:02 | CONS ---
DATE OF CONSULTATION: 03/01/2017 CHIEF COMPLAINT: Lower back pain. REQUESTING PHYSICIAN: Gale Amador MD ADMINISTRATIVE SUPPORT COORDINATOR: Justo Sutherland MD, Neurosurgery HISTORY OF PRESENT ILLNESS: The patient is a 76-year-old right-handed female with history of asthma, gastroesophageal reflux disease, hypertension/coronary artery disease, anxiety, depression, and peripheral neuropathy as well as chronic lower back pain who was at home this past week when she landed hard on her toilet seat. She did not lose consciousness. She complains of increasing back pain shooting down to her legs bilaterally. There is also some baseline numbness of her legs. She carries a diagnosis of neuropathy. There is no increasing weakness. There is no bowel or bladder incontinence. Her pain was so severe that she has jerky back movements. She denies any fevers or chills. PAST MEDICAL HISTORY: Significant for lower back pain, peripheral neuropathy, hypertension, asthma, coronary artery disease, gastroesophageal reflux disease, anxiety, depression. CURRENT MEDICATIONS/ADMISSION MEDICATIONS: Imdur, lisinopril, metoprolol, Singulair, omeprazole, Effexor, hydroxyzine. There are no known drug allergies. FAMILY HISTORY: Noncontributory. SOCIAL HISTORY: She is a current 6-iwnn-h-day smoker. She drinks alcohol socially. She has used marijuana socially. REVIEW OF SYSTEMS: Otherwise negative for other major head and neck, cardiovascular, pulmonary, gastrointestinal, genitourinary, endocrinological, neurological, psychological problems except for the above. PHYSICAL EXAMINATION: Vital Signs: Temperature is 98.4, temperature maximum is 99, blood pressure is 150/87 with pulse rate of 98, O2 saturation is 96% on room air. HEENT: She is normocephalic, atraumatic, anicteric. She has left-sided lip nevus. Coronary: Regular rhythm. Lungs: Clear bilaterally. Abdomen: Benign. Extremities: No signs of DVT. Back: Moderate paraspinal muscle spasm bilaterally in the mid and lower lumbar spine. Neurologic: She is awake, alert, and oriented x3. She is anxious. Cranial nerve is intact. Motor examination shows at least 4+/5 strength in the bilateral upper and lower extremities. Sensory examination is intact to light touch. She has decreased distal vibratory sensation, consistent with her peripheral neuropathy. LABORATORY EXAMINATION: Initial white blood cell count of 14.4, currently is 11.8. Serum sodium is 149, potassium is 4.3, BUN 9, creatinine 0.9. Urinalysis shows 3+ blood, 18 WBCs, and 5 RBCs. Urine culture is pending. CT scan of the lumbar spine demonstrated mild spondylosis throughout. There is mild facet arthrosis of the mid and lower lumbar spine. There is broad based disk bulge at L4-L5 with mild lateral recess narrowing. There is a T12 superior endplate depression with an approximately 10% decrease of vertebral column height. There is no canal compromise or involvement. IMPRESSION: 1. Probable acute T12 superior endplate osteoporotic compression fracture with no canal involvement. 2. Chronic lower back pain. 3. History of peripheral neuropathy. 4. Hypertension/coronary artery disease. 5. Anxiety/depression. 6. Rule out urinary tract infection. RECOMMENDATIONS: The patient presents with a T12 superior endplate fracture. There is about 10% decrease in vertebral column height. There is no canal compromise or breach to the posterior cortex. Generally, such fractures are not surgical and should be managed conservatively, at least initially. I am adding Lidoderm patches, given that she is already on multiple medications for several medical conditions already. Ideally, a course of muscle relaxants may be helpful; however, she does have a history of depression and is already on Klonopin for anxiety. Of course, physical therapy is recommended. I did discuss the possible use of a TLSO brace with the patient, but she is not sure as to if she can deal with that, given the size and constraint of it. Lidoderm patches will be attempted for pain control. I do expect some further settling of the height of T12 vertebral body in the coming weeks. Followup lumbar spine x-rays, to include T12, should be done in about 2 weeks to assess vertebral body height. If her pain persists, she will be considered for a kyphoplasty. The above treatment options were discussed with the patient at bedside. JUSTO SUTHERLAND M.D. [id number] MTDAndreas
[2017-03-01] MEDS ORDERED: PT OWN MED DRAWER 7, Y5N ONE ×2 (13:04→20:57)
--- NOTE | 2017-03-01 13:20 | PN ---
Progress Note, Physician Chief Complaint: The patient is a 76 year old female with past medical history of hypertension, GERD, asthma, anxiety, depression and chronic back pain who presents to the ED with 1 day of worsening back pain. She reports her pain is in her lower back and states it radiates down her bilateral lower extremities and up her spine. The patient states her pain is causing her to be bedridden. She denies any bowel or bladder incontinence. She denies trauma. She also reports palpitations since running out of her klonipin 1 week ago. History of Present Illness: Pt was seen By Neurosugeon/Ortho also Pt is relatively better No Fever No SOB - Current Medication List Current Medications: Active Medications Albuterol/Ipratropium (Duoneb -) 1 amp NEB Q6H PRN PRN Reason: SHORTNESS OF BREATH Baclofen (Lioresal -) 10 mg PO TID [facility] Last Admin: 03/01/17 05:57 Dose: 10 mg Clonazepam (Klonopin -) 0.5 mg PO Q12H PRN PRN Reason: ANXIETY Last Admin: 03/01/17 09:34 Dose: 0.5 mg Docusate Sodium (Colace -) 100 mg PO TID PRN PRN Reason: CONSTIPATION Stop: 03/14/17 06:00 Last Admin: 03/01/17 09:35 Dose: 100 mg Enoxaparin Sodium (Lovenox -) 30 mg SQ DAILY [facility] Last Admin: 03/01/17 09:35 Dose: 30 mg Gabapentin (Neurontin -) 200 mg PO TID [facility] Last Admin: 03/01/17 05:57 Dose: 200 mg Isosorbide Mononitrate (Imdur -) 30 mg PO DAILY [facility] Last Admin: 03/01/17 09:34 Dose: 30 mg Lidocaine (Lidoderm Patch -) 1 patch TP DAILY [facility] Lisinopril (Prinivil) 5 mg PO DAILY [facility] Last Admin: 03/01/17 09:35 Dose: 5 mg Metoprolol Tartrate (Lopressor -) 25 mg PO DAILY [facility] Last Admin: 03/01/17 09:34 Dose: 25 mg Miscellaneous (Lidoderm Patch Removal) 1 each [facility] DAILY@2200 [facility] Montelukast Sodium (Singulair -) 10 mg PO HS [facility] Last Admin: 02/28/17 21:25 Dose: 10 mg Ondansetron HCl (Zofran Injection) 4 mg IVPUSH Q6H PRN PRN Reason: NAUSEA Oxycodone HCl (Roxicodone -) 10 mg PO Q6H PRN PRN Reason: PAIN Last Admin: 03/01/17 04:40 Dose: 10 mg Pantoprazole Sodium (Protonix -) 40 mg PO DAILY [facility] Last Admin: 03/01/17 09:35 Dose: 40 mg Trimethoprim/Sulfamethoxazole (Bactrim Ds -) 1 each PO BID [facility] Last Admin: 03/01/17 09:34 Dose: 1 each Venlafaxine HCl (Effexor -) 75 mg PO TID [facility] Last Admin: 03/01/17 05:57 Dose: 75 mg - Objective Vital Signs: Vital Signs Temperature 98.2 F 03/01/17 08:32 Pulse Rate 98 H 03/01/17 08:32 Respiratory Rate 20 03/01/17 08:32 Blood Pressure 150/87 03/01/17 08:32 O2 Sat by Pulse Oximetry (%) 98 02/27/17 23:04 Constitutional: Yes: Well Nourished, Anxious Eyes: Yes: Conjunctiva Clear, EOM Intact HENT: Yes: Atraumatic, Normocephalic Neck: Yes: Supple, Trachea Midline Cardiovascular: Yes: Regular Rate and Rhythm, S1, S2 Respiratory: Yes: Regular, CTA Bilaterally Gastrointestinal: Yes: Normal Bowel Sounds, Soft Musculoskeletal: Yes: Back Pain, Muscle Pain Edema: No Peripheral Pulses WNL: Yes Neurological: Yes: Alert, Oriented, Cran Nerves II-XII Intact Labs: CBC, BMP 03/01/17 06:45 03/01/17 06:45 Problem List - Problems (1) Fall Code(s): W19.XXXA - UNSPECIFIED FALL, INITIAL ENCOUNTER (2) T12 compression fracture Code(s): S22.080A - WEDGE COMPRESSION FRACTURE OF T11-T12 VERTEBRA, INIT (3) Anxiety Code(s): F41.9 - ANXIETY DISORDER, UNSPECIFIED (4) Leukocytosis Code(s): D72.829 - ELEVATED WHITE BLOOD CELL COUNT, UNSPECIFIED (5) HTN (hypertension) Code(s): I10 - ESSENTIAL (PRIMARY) HYPERTENSION (6) GERD (gastroesophageal reflux disease) Code(s): K21.9 - GASTRO-ESOPHAGEAL REFLUX DISEASE WITHOUT ESOPHAGITIS (7) Asthma Code(s): J45.909 - UNSPECIFIED ASTHMA, UNCOMPLICATED (8) Depression Code(s): F32.9 - MAJOR DEPRESSIVE DISORDER, SINGLE EPISODE, UNSPECIFIED (9) Gait abnormality Code(s): R26.9 - UNSPECIFIED ABNORMALITIES OF GAIT AND MOBILITY (10) Back pain Code(s): M54.9 - DORSALGIA, UNSPECIFIED (11) Constipation Code(s): K59.00 - CONSTIPATION, UNSPECIFIED Assessment/Plan (1) Fall Code(s): W19.XXXA - UNSPECIFIED FALL, INITIAL ENCOUNTER (2) T12 compression fracture Code(s): S22.080A - WEDGE COMPRESSION FRACTURE OF T11-T12 VERTEBRA, INIT Neurosurgical consult (3) Anxiety Code(s): F41.9 - ANXIETY DISORDER, UNSPECIFIED (4) Leukocytosis Code(s): D72.829 - ELEVATED WHITE BLOOD CELL COUNT, UNSPECIFIED (5) HTN (hypertension) Code(s): I10 - ESSENTIAL (PRIMARY) HYPERTENSION (6) GERD (gastroesophageal reflux disease) Code(s): K21.9 - GASTRO-ESOPHAGEAL REFLUX DISEASE WITHOUT ESOPHAGITIS (7) Asthma Code(s): J45.909 - UNSPECIFIED ASTHMA, UNCOMPLICATED (8) Depression Code(s): F32.9 - MAJOR DEPRESSIVE DISORDER, SINGLE EPISODE, UNSPECIFIED (9) Gait abnormality Code(s): R26.9 - UNSPECIFIED ABNORMALITIES OF GAIT AND MOBILITY (10) Back pain Code(s): M54.9 - DORSALGIA, UNSPECIFIED (11) Constipation Code(s): K59.00 - CONSTIPATION, UNSPECIFIED Pt had Neurosurgical /Ortho consult done Pt was seen by Psych also Pt will have PT evaluation Optimizing pain of the patient
[2017-03-01] MEDS: LIDOCAINE 5% TOPICAL PATCH TP SCH (13:25)
--- NOTE | 2017-03-01 13:27 | PN ---
Progress Note, Physician History of Present Illness: Pt only complaining of back pain shooting down to legs. Denies dysuria. Tmax 99F , no chills. - Current Medication List Current Medications: Active Medications Albuterol/Ipratropium (Duoneb -) 1 amp NEB Q6H PRN PRN Reason: SHORTNESS OF BREATH Baclofen (Lioresal -) 10 mg PO TID [facility] Last Admin: 03/01/17 05:57 Dose: 10 mg Clonazepam (Klonopin -) 0.5 mg PO Q12H PRN PRN Reason: ANXIETY Last Admin: 03/01/17 09:34 Dose: 0.5 mg Docusate Sodium (Colace -) 100 mg PO TID PRN PRN Reason: CONSTIPATION Stop: 03/14/17 06:00 Last Admin: 03/01/17 09:35 Dose: 100 mg Enoxaparin Sodium (Lovenox -) 30 mg SQ DAILY [facility] Last Admin: 03/01/17 09:35 Dose: 30 mg Gabapentin (Neurontin -) 200 mg PO TID [facility] Last Admin: 03/01/17 05:57 Dose: 200 mg Isosorbide Mononitrate (Imdur -) 30 mg PO DAILY [facility] Last Admin: 03/01/17 09:34 Dose: 30 mg Lidocaine (Lidoderm Patch -) 1 patch TP DAILY [facility] Lisinopril (Prinivil) 5 mg PO DAILY [facility] Last Admin: 03/01/17 09:35 Dose: 5 mg Metoprolol Tartrate (Lopressor -) 25 mg PO DAILY [facility] Last Admin: 03/01/17 09:34 Dose: 25 mg Miscellaneous (Lidoderm Patch Removal) 1 each MC DAILY@2200 [facility] Montelukast Sodium (Singulair -) 10 mg PO HS [facility] Last Admin: 02/28/17 21:25 Dose: 10 mg Ondansetron HCl (Zofran Injection) 4 mg IVPUSH Q6H PRN PRN Reason: NAUSEA Oxycodone HCl (Roxicodone -) 10 mg PO Q6H PRN PRN Reason: PAIN Last Admin: 03/01/17 04:40 Dose: 10 mg Pantoprazole Sodium (Protonix -) 40 mg PO DAILY [facility] Last Admin: 03/01/17 09:35 Dose: 40 mg Trimethoprim/Sulfamethoxazole (Bactrim Ds -) 1 each PO BID [facility] Last Admin: 03/01/17 09:34 Dose: 1 each Venlafaxine HCl (Effexor -) 75 mg PO TID [facility] Last Admin: 03/01/17 05:57 Dose: 75 mg - Objective Vital Signs: Vital Signs Temperature 98.2 F 03/01/17 08:32 Pulse Rate 98 H 03/01/17 08:32 Respiratory Rate 20 03/01/17 08:32 Blood Pressure 150/87 03/01/17 08:32 O2 Sat by Pulse Oximetry (%) 98 02/27/17 23:04 Constitutional: Yes: Mild Distress Cardiovascular: Yes: Regular Rate and Rhythm Respiratory: Yes: CTA Bilaterally Gastrointestinal: Yes: Normal Bowel Sounds, Soft Genitourinary: Yes: WNL Musculoskeletal: Yes: Back Pain Neurological: Yes: Alert, Oriented Labs: CBC, BMP 03/01/17 06:45 03/01/17 06:45 Urine culture results pending Problem List - Problems (1) Leukocytosis Code(s): D72.829 - ELEVATED WHITE BLOOD CELL COUNT, UNSPECIFIED Assessment/Plan 76 y.o. female with anxiety, chronic back pain admitted s/p fall with worsened back pain possible UTI - f/u urine culture results - continue bactrim empirically for now pt currently afebrile, stable continue monitor wbc, temps
[2017-03-01] MEDS ORDERED: clonazePAM 0.5 MG TABLET PO PRN (15:00)
[2017-03-01] MEDS: traMADol HCL 50 MG TABLET PO SCH ×2 (15:44→21:08)
[2017-03-01] MEDS: clonazePAM 0.5 MG TABLET PO SCH (21:08)
[2017-03-01] MEDS: MONTELUKAST NA 10 MG TABLET PO SCH (21:08)
[2017-03-01] MEDS: HYDROCORTISONE 1% TOPICAL CREAM 30 GM TUBE TP SCH (21:09)
[2017-03-01] MEDS: LIDOCAINE PATCH REMOVAL MC SCH (21:16)
[2017-03-01] MEDS: ZOLPIDEM TARTRATE 5 MG TABLET PO PRN (22:11)
[2017-03-02] MEDS: BACLOFEN 10 MG TABLET (FP) PO SCH ×3 (05:30→21:05)
[2017-03-02] MEDS: clonazePAM 0.5 MG TABLET PO SCH ×3 (05:30→21:06)
[2017-03-02] MEDS: traMADol HCL 50 MG TABLET PO SCH ×3 (05:30→21:05)
[2017-03-02] MEDS: VENLAFAXINE HCL 75 MG TABLET PO SCH ×3 (05:31→22:36)
[2017-03-02] MEDS: GABAPENTIN 100 MG CAPSULE (FP) PO SCH ×3 (05:31→21:06)
[2017-03-02] MEDS: HYDROCORTISONE 1% TOPICAL CREAM 30 GM TUBE TP SCH ×3 (05:35→22:36)
[2017-03-02 08:50] LABS: BASO % 0.9 % (0-2.0); EOS % 3.5 % (0-4.5); HEMATOCRIT 44.6 % (32.4-45.2); HEMOGLOBIN 14.7 GM/dL (10.7-15.3); LYMPH % 16.4 % (8-40); MCH 29.2 pg (25.7-33.7); MEAN CELL VOLUME 88.6 fl (80-96); MEAN PLT VOLUME 9.1 fl (7.5-11.1); MONO % 10.9 % (3.8-10.2); NEUT % 68.3 % (42.8-82.8); PLATELET COUNT 302 K/MM3 (134-434); RBC 5.03 M/mm3 (3.60-5.2); RDW 13.9 % (11.6-15.6); WHITE BLOOD COUNT 10.3 K/mm3 (4.0-10.0)
[2017-03-02 08:54] LABS: ANION GAP 11 (8-16); BLOOD UREA NITROGEN 13 mg/dL (7-18); CALCIUM 9.1 mg/dL (8.5-10.1); CHLORIDE 101 mmol/L (98-107); CO2 26 mmol/L (21-32); CREATININE 0.9 mg/dL (0.55-1.02); GLUCOSE,RANDOM 118 mg/dL (74-106); POTASSIUM 3.4 mmol/L (3.5-5.1); SODIUM 138 mmol/L (136-145)
[2017-03-02] MEDS ORDERED: PT OWN MED DRAWER 7, Y5N ONE (09:33)
[2017-03-02] MEDS: LIDOCAINE 5% TOPICAL PATCH TP SCH (10:02)
[2017-03-02] MEDS: PANTOPRAZOLE 40 MG TABLET (FP) PO SCH (10:02)
[2017-03-02] MEDS: METOPROLOL TARTRATE 25 MG TABLET (FP) PO SCH (10:02)
[2017-03-02] MEDS: SULFAMETHOXAZOLE/TRIMETHOPRIM 800MG/160MG D.S. TABLET PO SCH ×2 (10:02→21:06)
[2017-03-02] MEDS: ISOSORBIDE MONONITRATE 30 MG TAB.SR.24H (FP) PO SCH (10:02)
[2017-03-02] MEDS: ENOXAPARIN NA (PORCINE) 30 MG/0.3 ML DISP.SYRIN SQ SCH (10:02)
[2017-03-02] MEDS: LISINOPRIL 5 MG TABLET (FP) PO SCH (10:02)
--- NOTE | 2017-03-02 10:11 | PN ---
Progress Note (short form) - Note Progress Note: NEUROSURGERY c/o pain all over Uncomfortable in bed PE: AF, VSS Anxious HEENT- NC/AT, L lip nevus; Cor-RR; Lungs- CTA B; ABd- benign; Ext- no sign of DVT CN- intact; Motor- at least 4+/5 b UE/LE; Sensation- intact LT; DTR- hyporeflexic B LS spine CT- mild T12 superior endplate depression with minimal (10%) reduction of vertebral column height; no canal involvement; Broad based L4-5 disc bulge; mild facet hypertrophy Acute T12 sup endplate fx with no canal involvement or new deficit Pain meds/PT/rehab Further vertebral column height reduction likely prior to settling at final vertebral column height at T12 Added lidoderm patch yesterday Increase neurontin to 300 mg tid if no significant side effects at current dosage Given prior anxiety/depression would not add more meds at this time o DVT prophylaxis F/U LS spine x-rays in 2 weeks to assess T12 vertebral column height If persistent pain could consider pain management and/or kyphoplasty, though the fx is minimal at this time
--- NOTE | 2017-03-02 10:47 | PN ---
Progress Note, Physician Chief Complaint: The patient is a 76 year old female with past medical history of hypertension, GERD, asthma, anxiety, depression and chronic back pain who presents to the ED with 1 day of worsening back pain. She reports her pain is in her lower back and states it radiates down her bilateral lower extremities and up her spine. The patient states her pain is causing her to be bedridden. She denies any bowel or bladder incontinence. She denies trauma. She also reports palpitations since running out of her klonipin 1 week ago. Pt is relatively better today History of Present Illness: Pt was seen By Neurosugeon/Ortho also Pt is relatively better No Fever No SOB - Current Medication List Current Medications: Active Medications Albuterol/Ipratropium (Duoneb -) 1 amp NEB Q6H PRN PRN Reason: SHORTNESS OF BREATH Baclofen (Lioresal -) 10 mg PO TID [facility] Last Admin: 03/02/17 05:30 Dose: 10 mg Clonazepam (Klonopin -) 0.5 mg PO TID [facility] Stop: 03/03/17 22:01 Last Admin: 03/02/17 05:30 Dose: 0.5 mg Docusate Sodium (Colace -) 100 mg PO TID PRN PRN Reason: CONSTIPATION Stop: 03/14/17 06:00 Last Admin: 03/01/17 09:35 Dose: 100 mg Enoxaparin Sodium (Lovenox -) 30 mg SQ DAILY [facility] Last Admin: 03/02/17 10:02 Dose: 30 mg Gabapentin (Neurontin -) 200 mg PO TID [facility] Last Admin: 03/02/17 05:31 Dose: 200 mg Hydrocortisone (Hytone 1% Cream -) 1 applic TP TID [facility] Last Admin: 03/02/17 05:35 Dose: 1 applic Isosorbide Mononitrate (Imdur -) 30 mg PO DAILY [facility] Last Admin: 03/02/17 10:02 Dose: 30 mg Lidocaine (Lidoderm Patch -) 1 patch TP DAILY [facility] Last Admin: 03/02/17 10:02 Dose: 1 patch Lisinopril (Prinivil) 5 mg PO DAILY [facility] Last Admin: 03/02/17 10:02 Dose: 5 mg Metoprolol Tartrate (Lopressor -) 25 mg PO DAILY [facility] Last Admin: 01/08/18 10:02 Dose: 25 mg Miscellaneous (Lidoderm Patch Removal) 1 each MC DAILY@2200 [facility] Last Admin: 03/01/17 21:16 Dose: 1 each Montelukast Sodium (Singulair -) 10 mg PO HS [facility] Last Admin: 03/01/17 21:08 Dose: 10 mg Ondansetron HCl (Zofran Injection) 4 mg IVPUSH Q6H PRN PRN Reason: NAUSEA Pantoprazole Sodium (Protonix -) 40 mg PO DAILY [facility] Last Admin: 03/02/17 10:02 Dose: 40 mg Tramadol HCl (Ultram -) 50 mg PO TID [facility] Stop: 03/07/17 15:44 Last Admin: 03/02/17 05:30 Dose: 50 mg Trimethoprim/Sulfamethoxazole (Bactrim Ds -) 1 each PO BID [facility] Last Admin: 03/02/17 10:02 Dose: 1 each Venlafaxine HCl (Effexor -) 75 mg PO TID [facility] Last Admin: 03/02/17 05:31 Dose: 75 mg Zolpidem Tartrate (Ambien -) 5 mg PO HS PRN PRN Reason: INSOMNIA Last Admin: 03/01/17 22:11 Dose: 5 mg - Objective Vital Signs: Vital Signs Temperature 99.1 F 03/02/17 06:00 Pulse Rate 103 H 03/02/17 06:00 Respiratory Rate 20 03/02/17 06:00 Blood Pressure 120/54 03/02/17 06:00 O2 Sat by Pulse Oximetry (%) 98 02/27/17 23:04 Constitutional: Yes: Anxious Eyes: Yes: Conjunctiva Clear, EOM Intact HENT: Yes: Atraumatic, Normocephalic Neck: Yes: Supple, Trachea Midline Cardiovascular: Yes: Regular Rate and Rhythm, S1, S2 Respiratory: Yes: Regular, CTA Bilaterally Gastrointestinal: Yes: Normal Bowel Sounds, Soft Musculoskeletal: Yes: Back Pain, Other Edema: No Peripheral Pulses WNL: Yes Neurological: Yes: Alert, Cran Nerves II-XII Intact Labs: CBC, BMP 03/02/17 07:00 03/02/17 07:00 Problem List - Problems (1) Fall Code(s): W19.XXXA - UNSPECIFIED FALL, INITIAL ENCOUNTER (2) T12 compression fracture Code(s): S22.080A - WEDGE COMPRESSION FRACTURE OF T11-T12 VERTEBRA, INIT (3) Anxiety Code(s): F41.9 - ANXIETY DISORDER, UNSPECIFIED (4) Leukocytosis Code(s): D72.829 - ELEVATED WHITE BLOOD CELL COUNT, UNSPECIFIED (5) HTN (hypertension) Code(s): I10 - ESSENTIAL (PRIMARY) HYPERTENSION (6) GERD (gastroesophageal reflux disease) Code(s): K21.9 - GASTRO-ESOPHAGEAL REFLUX DISEASE WITHOUT ESOPHAGITIS (7) Asthma Code(s): J45.909 - UNSPECIFIED ASTHMA, UNCOMPLICATED (8) Depression Code(s): F32.9 - MAJOR DEPRESSIVE DISORDER, SINGLE EPISODE, UNSPECIFIED (9) Gait abnormality Code(s): R26.9 - UNSPECIFIED ABNORMALITIES OF GAIT AND MOBILITY (10) Back pain Code(s): M54.9 - DORSALGIA, UNSPECIFIED (11) Constipation Code(s): K59.00 - CONSTIPATION, UNSPECIFIED Assessment/Plan (1) Fall Code(s): W19.XXXA - UNSPECIFIED FALL, INITIAL ENCOUNTER (2) T12 compression fracture Code(s): S22.080A - WEDGE COMPRESSION FRACTURE OF T11-T12 VERTEBRA, INIT Neurosurgical consult (3) Anxiety Code(s): F41.9 - ANXIETY DISORDER, UNSPECIFIED (4) Leukocytosis Code(s): D72.829 - ELEVATED WHITE BLOOD CELL COUNT, UNSPECIFIED (5) HTN (hypertension) Code(s): I10 - ESSENTIAL (PRIMARY) HYPERTENSION (6) GERD (gastroesophageal reflux disease) Code(s): K21.9 - GASTRO-ESOPHAGEAL REFLUX DISEASE WITHOUT ESOPHAGITIS (7) Asthma Code(s): J45.909 - UNSPECIFIED ASTHMA, UNCOMPLICATED (8) Depression Code(s): F32.9 - MAJOR DEPRESSIVE DISORDER, SINGLE EPISODE, UNSPECIFIED (9) Gait abnormality Code(s): R26.9 - UNSPECIFIED ABNORMALITIES OF GAIT AND MOBILITY (10) Back pain Code(s): M54.9 - DORSALGIA, UNSPECIFIED (11) Constipation Code(s): K59.00 - CONSTIPATION, UNSPECIFIED Pt had Neurosurgical /Ortho consult done Pt was seen by Psych also Pt had PT evaluation Optimizing pain of the patient Pt did not do MRI/not coopertive
--- NOTE | 2017-03-02 12:44 | PN ---
Progress Note, Physician History of Present Illness: patient c/o of pain all over history noted wbc trending down very anxious - Current Medication List Current Medications: Active Medications Albuterol/Ipratropium (Duoneb -) 1 amp NEB Q6H PRN PRN Reason: SHORTNESS OF BREATH Baclofen (Lioresal -) 10 mg PO TID [facility] Last Admin: 03/02/17 05:30 Dose: 10 mg Clonazepam (Klonopin -) 0.5 mg PO TID [facility] Stop: 03/03/17 22:01 Last Admin: 03/02/17 05:30 Dose: 0.5 mg Docusate Sodium (Colace -) 100 mg PO TID PRN PRN Reason: CONSTIPATION Stop: 03/14/17 06:00 Last Admin: 03/01/17 09:35 Dose: 100 mg Enoxaparin Sodium (Lovenox -) 30 mg SQ DAILY [facility] Last Admin: 03/02/17 10:02 Dose: 30 mg Gabapentin (Neurontin -) 200 mg PO TID [facility] Last Admin: 03/02/17 05:31 Dose: 200 mg Hydrocortisone (Hytone 1% Cream -) 1 applic TP TID [facility] Last Admin: 03/02/17 05:35 Dose: 1 applic Isosorbide Mononitrate (Imdur -) 30 mg PO DAILY [facility] Last Admin: 03/02/17 10:02 Dose: 30 mg Lidocaine (Lidoderm Patch -) 1 patch TP DAILY [facility] Last Admin: 03/02/17 10:02 Dose: 1 patch Lisinopril (Prinivil) 5 mg PO DAILY [facility] Last Admin: 03/02/17 10:02 Dose: 5 mg Metoprolol Tartrate (Lopressor -) 25 mg PO DAILY [facility] Last Admin: 03/02/17 10:02 Dose: 25 mg Miscellaneous (Lidoderm Patch Removal) 1 each MC DAILY@2200 [facility] Last Admin: 03/01/17 21:16 Dose: 1 each Montelukast Sodium (Singulair -) 10 mg PO HS [facility] Last Admin: 03/01/17 21:08 Dose: 10 mg Ondansetron HCl (Zofran Injection) 4 mg IVPUSH Q6H PRN PRN Reason: NAUSEA Pantoprazole Sodium (Protonix -) 40 mg PO DAILY [facility] Last Admin: 01/08/18 10:02 Dose: 40 mg Tramadol HCl (Ultram -) 50 mg PO TID [facility] Stop: 03/07/17 15:44 Last Admin: 03/02/17 05:30 Dose: 50 mg Trimethoprim/Sulfamethoxazole (Bactrim Ds -) 1 each PO BID [facility] Last Admin: 03/02/17 10:02 Dose: 1 each Venlafaxine HCl (Effexor -) 75 mg PO TID [facility] Last Admin: 03/02/17 05:31 Dose: 75 mg Zolpidem Tartrate (Ambien -) 5 mg PO HS PRN PRN Reason: INSOMNIA Last Admin: 03/01/17 22:11 Dose: 5 mg - Objective Vital Signs: Vital Signs Temperature 99.1 F 03/02/17 06:00 Pulse Rate 103 H 03/02/17 06:00 Respiratory Rate 20 03/02/17 06:00 Blood Pressure 120/54 03/02/17 06:00 O2 Sat by Pulse Oximetry (%) 98 02/27/17 23:04 Constitutional: Yes: Moderate Distress Cardiovascular: Yes: Regular Rate and Rhythm Respiratory: Yes: Regular, CTA Bilaterally Gastrointestinal: Yes: Normal Bowel Sounds, Soft Musculoskeletal: Yes: WNL Extremities: Yes: Other Neurological: Yes: Alert, Other Labs: CBC, BMP 03/02/17 07:00 03/02/17 07:00 Assessment/Plan Problem List - Problems (1) Fall Code(s): W19.XXXA - UNSPECIFIED FALL, INITIAL ENCOUNTER (2) T12 compression fracture Code(s): S22.080A - WEDGE COMPRESSION FRACTURE OF T11-T12 VERTEBRA, INIT (3) Anxiety Code(s): F41.9 - ANXIETY DISORDER, UNSPECIFIED (4) Leukocytosis Code(s): D72.829 - ELEVATED WHITE BLOOD CELL COUNT, UNSPECIFIED (5) HTN (hypertension) Code(s): I10 - ESSENTIAL (PRIMARY) HYPERTENSION (6) GERD (gastroesophageal reflux disease) Code(s): K21.9 - GASTRO-ESOPHAGEAL REFLUX DISEASE WITHOUT ESOPHAGITIS (7) Asthma Code(s): J45.909 - UNSPECIFIED ASTHMA, UNCOMPLICATED (8) Depression Code(s): F32.9 - MAJOR DEPRESSIVE DISORDER, SINGLE EPISODE, UNSPECIFIED (9) Gait abnormality Code(s): R26.9 - UNSPECIFIED ABNORMALITIES OF GAIT AND MOBILITY (10) Back pain Code(s): M54.9 - DORSALGIA, UNSPECIFIED (11) Constipation Code(s): K59.00 - CONSTIPATION, UNSPECIFIED 12 T12 sup endplate fx plan continue current mgmt wbc trending down' close watch very anxious rest continue current mgmt will see tomorrow wbc and then decide
[2017-03-02] MEDS: ALBUTEROL SO4 2.5/IPRATROPIUM 0.5 INH SOL 3 ML VIAL.NEB. NEB PRN (16:45)
[2017-03-02] MEDS ORDERED: LORazepam 1 MG TABLET PO ONE (21:00)
[2017-03-02] MEDS: MONTELUKAST NA 10 MG TABLET PO SCH (21:05)
--- NOTE | 2017-03-02 22:24 | CONSULT ---
Consult Consult Specialty:: pain medicine Referred by:: pcp Reason for Consultation:: back pain - History of Present Illness Chief Complaint: back pain History of Present Illness: 76 year old woman found to have Acute compression fracture. Currently she reports she was able to stand and walk earlier today. Pain score 8/10. - Past Medical History [employer]LET [employer]IER: Yes: Peripheral Neuropathy (B/L Feet) Cardio/Vascular: Yes: HTN Pulmonary: Yes: Asthma Gastrointestinal: Yes: GERD Psych: Yes: Anxiety, Depression Musculoskeletal: Yes: Chronic low back pain - Past Surgical History Past Surgical History: Yes: None - Alcohol/Substance Use Hx Alcohol Use: No History of Substance Use: reports: Marijuana (+THC on Urine toxicology as per ED Note on 02/14) - Smoking History Smoking history: Current some day smoker (1/2 ppd since age 16) Have you smoked in the past 12 months: Yes Aproximately how many cigarettes per day: 10 - Social History Usual Living Arrangement: With Child History of Recent Travel: No Home Medications - Allergies Allergies/Adverse Reactions: Allergies Allergy/AdvReac Type Severity Reaction Status Date / Time No Known Allergies Allergy Verified 02/27/17 16:56 - Home Medications Home Medications: Ambulatory Orders Isosorbide Mononitrate [Imdur -] 30 mg PO DAILY 02/14/17 Lisinopril [Prinivil] 5 mg PO DAILY 02/14/17 Metoprolol Tartrate [Lopressor -] 25 mg PO DAILY 02/14/17 Montelukast Na [Singulair -] 10 mg PO HS 02/14/17 Omeprazole 20 mg PO DAILY 02/14/17 Venlafaxine HCl ER [Effexor Xr -] 75 mg PO TID 02/14/17 Hydroxyzine Pamoate [Vistaril -] 25 mg PO TID PRN #15 capsule 02/19/17 Physical Exam Vital Signs: Vital Signs Temperature 98.9 F 03/02/17 14:35 Pulse Rate 85 03/02/17 14:35 Respiratory Rate 20 03/02/17 14:35 Blood Pressure 153/68 03/02/17 14:35 O2 Sat by Pulse Oximetry (%) 98 03/02/17 08:00 Musculoskeletal: Yes: Back Pain Labs: CBC, BMP 03/02/17 07:00 03/02/17 07:00 Assessment/Plan Thoracic compression fracutre 1.I spoke with the patient about the possibility of a kyphoplasty and at this time she would like to continue with conservative treatments 2. Thoracic-lumbar support brace 3. Lidocaine patches 4. NSAIDS if no contraindications 5. Osteoporosis workup and treatment as an outpatient 6. Consider kyphoplasty if above fails to improve patients pain Dr Hickey [phone] office [phone] cell
[2017-03-02] MEDS: LIDOCAINE PATCH REMOVAL MC SCH (22:36)
[2017-03-03] MEDS: traMADol HCL 50 MG TABLET PO SCH ×4 (06:21→21:43)
[2017-03-03] MEDS: clonazePAM 0.5 MG TABLET PO SCH ×3 (06:21→21:13)
[2017-03-03] MEDS: BACLOFEN 10 MG TABLET (FP) PO SCH ×3 (06:21→21:16)
[2017-03-03] MEDS: GABAPENTIN 100 MG CAPSULE (FP) PO SCH (06:21)
[2017-03-03] MEDS: VENLAFAXINE HCL 75 MG TABLET PO SCH ×3 (06:22→21:16)
[2017-03-03] MEDS: HYDROCORTISONE 1% TOPICAL CREAM 30 GM TUBE TP SCH ×3 (06:22→21:17)
--- NOTE | 2017-03-03 08:07 | PN ---
Progress Note (short form) - Note Progress Note: NEUROSURGERY Comfortable resting in bed Pt care and plans d/w Dr Jones yesterday Consult by Dr Hickye noted PE: AF, VSS HEENT- NC/AT, L lip nevus; Cor-RR; Lungs- CTA B; ABd- benign; Ext- no sign of DVT CN- intact; Motor- at least 4+/5 b UE/LE; Sensation- intact LT; DTR- hyporeflexic B LS spine CT- mild T12 superior endplate depression with minimal (10%) reduction of vertebral column height; no canal involvement; Broad based L4-5 disc bulge; mild facet hypertrophy Acute T12 sup endplate fx with no canal involvement or new deficit Pain meds/PT/rehab Further vertebral column height reduction likely prior to settling at final vertebral column height at T12 Added lidoderm patch yesterday Increase neurontin to 300 mg tid if no significant side effects at current dosage Given prior anxiety/depression and multiple current meds would not add more meds at this time T spine baseline MRI to evaluate acute T12 fx DVT prophylaxis F/U LS spine x-rays in 2 weeks to assess T12 vertebral column height If persistent pain could consider pain management and/or kyphoplasty, though the fx is minimal at this time
[2017-03-03] MEDS: LIDOCAINE 5% TOPICAL PATCH TP SCH ×2 (10:57→11:43)
[2017-03-03] MEDS: GABAPENTIN 300 MG CAPSULE (FP) PO SCH ×4 (10:57→21:16)
[2017-03-03] MEDS: SULFAMETHOXAZOLE/TRIMETHOPRIM 800MG/160MG D.S. TABLET PO SCH ×2 (10:57→11:41)
[2017-03-03] MEDS: METOPROLOL TARTRATE 25 MG TABLET (FP) PO SCH ×2 (10:57→11:42)
[2017-03-03] MEDS: ISOSORBIDE MONONITRATE 30 MG TAB.SR.24H (FP) PO SCH ×2 (10:57→11:42)
[2017-03-03] MEDS: PANTOPRAZOLE 40 MG TABLET (FP) PO SCH ×2 (10:58→11:41)
[2017-03-03] MEDS: ENOXAPARIN NA (PORCINE) 30 MG/0.3 ML DISP.SYRIN SQ SCH ×2 (10:58→11:42)
[2017-03-03] MEDS: LISINOPRIL 5 MG TABLET (FP) PO SCH ×2 (10:58→11:42)
[2017-03-03] MEDS: ALBUTEROL SO4 2.5/IPRATROPIUM 0.5 INH SOL 3 ML VIAL.NEB. NEB PRN (12:15)
--- NOTE | 2017-03-03 12:54 | PN ---
Progress Note, Physician History of Present Illness: very anxious otherwise stable pain all over - Current Medication List Current Medications: Active Medications Albuterol/Ipratropium (Duoneb -) 1 amp NEB Q6H PRN PRN Reason: SHORTNESS OF BREATH Last Admin: 03/02/17 16:45 Dose: 1 amp Baclofen (Lioresal -) 10 mg PO TID [facility] Last Admin: 03/03/17 06:21 Dose: 10 mg Clonazepam (Klonopin -) 0.5 mg PO TID [facility] Stop: 03/03/17 22:01 Last Admin: 03/03/17 06:21 Dose: 0.5 mg Docusate Sodium (Colace -) 100 mg PO TID PRN PRN Reason: CONSTIPATION Stop: 03/14/17 06:00 Last Admin: 03/01/17 09:35 Dose: 100 mg Enoxaparin Sodium (Lovenox -) 30 mg SQ DAILY [facility] Last Admin: 03/03/17 11:42 Dose: 30 mg Gabapentin (Neurontin -) 300 mg PO TID [facility] Last Admin: 03/03/17 11:41 Dose: 300 mg Hydrocortisone (Hytone 1% Cream -) 1 applic TP TID [facility] Last Admin: 03/03/17 06:22 Dose: 1 applic Isosorbide Mononitrate (Imdur -) 30 mg PO DAILY [facility] Last Admin: 03/03/17 11:42 Dose: 30 mg Lidocaine (Lidoderm Patch -) 1 patch TP DAILY [facility] Last Admin: 03/03/17 11:43 Dose: 1 patch Lisinopril (Prinivil) 5 mg PO DAILY [facility] Last Admin: 03/03/17 11:42 Dose: 5 mg Metoprolol Tartrate (Lopressor -) 25 mg PO DAILY [facility] Last Admin: 03/03/17 11:42 Dose: 25 mg Miscellaneous (Lidoderm Patch Removal) 1 each MC DAILY@2200 [facility] Last Admin: 03/02/17 22:36 Dose: 1 each Montelukast Sodium (Singulair -) 10 mg PO HS [facility] Last Admin: 03/02/17 21:05 Dose: 10 mg Ondansetron HCl (Zofran Injection) 4 mg IVPUSH Q6H PRN PRN Reason: NAUSEA Pantoprazole Sodium (Protonix -) 40 mg PO DAILY [facility] Last Admin: 03/03/17 11:41 Dose: 40 mg Tramadol HCl (Ultram -) 50 mg PO TID [facility] Stop: 03/07/17 15:44 Last Admin: 03/03/17 06:21 Dose: 50 mg Trimethoprim/Sulfamethoxazole (Bactrim Ds -) 1 each PO BID [facility] Last Admin: 03/03/17 11:41 Dose: 1 each Venlafaxine HCl (Effexor -) 75 mg PO TID [facility] Last Admin: 03/03/17 06:22 Dose: 75 mg Zolpidem Tartrate (Ambien -) 5 mg PO HS PRN PRN Reason: INSOMNIA Last Admin: 03/01/17 22:11 Dose: 5 mg - Objective Vital Signs: Vital Signs Temperature 98.6 F 03/03/17 06:00 Pulse Rate 104 H 03/03/17 06:00 Respiratory Rate 20 03/03/17 06:00 Blood Pressure 138/74 03/03/17 06:00 O2 Sat by Pulse Oximetry (%) 98 03/02/17 08:00 Constitutional: Yes: No Distress, Calm Cardiovascular: Yes: Regular Rate and Rhythm Respiratory: Yes: Regular, CTA Bilaterally Gastrointestinal: Yes: Normal Bowel Sounds, Soft Musculoskeletal: Yes: Other Extremities: Yes: Other Neurological: Yes: Alert Psychiatric: Yes: Alert Labs: CBC, BMP 03/02/17 07:00 03/02/17 07:00 Assessment/Plan Problem List - Problems (1) Fall Code(s): W19.XXXA - UNSPECIFIED FALL, INITIAL ENCOUNTER (2) T12 compression fracture Code(s): S22.080A - WEDGE COMPRESSION FRACTURE OF T11-T12 VERTEBRA, INIT (3) Anxiety Code(s): F41.9 - ANXIETY DISORDER, UNSPECIFIED (4) Leukocytosis Code(s): D72.829 - ELEVATED WHITE BLOOD CELL COUNT, UNSPECIFIED (5) HTN (hypertension) Code(s): I10 - ESSENTIAL (PRIMARY) HYPERTENSION (6) GERD (gastroesophageal reflux disease) Code(s): K21.9 - GASTRO-ESOPHAGEAL REFLUX DISEASE WITHOUT ESOPHAGITIS (7) Asthma Code(s): J45.909 - UNSPECIFIED ASTHMA, UNCOMPLICATED (8) Depression Code(s): F32.9 - MAJOR DEPRESSIVE DISORDER, SINGLE EPISODE, UNSPECIFIED (9) Gait abnormality Code(s): R26.9 - UNSPECIFIED ABNORMALITIES OF GAIT AND MOBILITY (10) Back pain Code(s): M54.9 - DORSALGIA, UNSPECIFIED (11) Constipation Code(s): K59.00 - CONSTIPATION, UNSPECIFIED 12 T12 sup endplate fx plan continue current mgmt urine cx noted will stop abx physio rest as per neuro
--- NOTE | 2017-03-03 13:03 | PN ---
Progress Note, Physician Chief Complaint: The patient is a 76 year old female with past medical history of hypertension, GERD, asthma, anxiety, depression and chronic back pain who presents to the ED with 1 day of worsening back pain. She reports her pain is in her lower back and states it radiates down her bilateral lower extremities and up her spine. The patient states her pain is causing her to be bedridden. She denies any bowel or bladder incontinence. She denies trauma. She also reports palpitations since running out of her klonipin 1 week ago. Pt is relatively better today Pt is having less spasms History of Present Illness: Pt was seen By Neurosugeon/Ortho also Pt is relatively better No Fever No SOB Pt seen by spine for Khyphoplasty - Current Medication List Current Medications: Active Medications Albuterol/Ipratropium (Duoneb -) 1 amp NEB Q6H PRN PRN Reason: SHORTNESS OF BREATH Last Admin: 03/02/17 16:45 Dose: 1 amp Baclofen (Lioresal -) 10 mg PO TID [facility] Last Admin: 03/03/17 06:21 Dose: 10 mg Clonazepam (Klonopin -) 0.5 mg PO TID [facility] Stop: 03/03/17 22:01 Last Admin: 03/03/17 06:21 Dose: 0.5 mg Docusate Sodium (Colace -) 100 mg PO TID PRN PRN Reason: CONSTIPATION Stop: 03/14/17 06:00 Last Admin: 03/01/17 09:35 Dose: 100 mg Enoxaparin Sodium (Lovenox -) 30 mg SQ DAILY [facility] Last Admin: 03/03/17 11:42 Dose: 30 mg Gabapentin (Neurontin -) 300 mg PO TID [facility] Last Admin: 03/03/17 11:41 Dose: 300 mg Hydrocortisone (Hytone 1% Cream -) 1 applic TP TID [facility] Last Admin: 03/03/17 06:22 Dose: 1 applic Isosorbide Mononitrate (Imdur -) 30 mg PO DAILY [facility] Last Admin: 03/03/17 11:42 Dose: 30 mg Lidocaine (Lidoderm Patch -) 1 patch TP DAILY [facility] Last Admin: 03/03/17 11:43 Dose: 1 patch Lisinopril (Prinivil) 5 mg PO DAILY [facility] Last Admin: 03/03/17 11:42 Dose: 5 mg Metoprolol Tartrate (Lopressor -) 25 mg PO DAILY [facility] Last Admin: 03/03/17 11:42 Dose: 25 mg Miscellaneous (Lidoderm Patch Removal) 1 each MC DAILY@2200 [facility] Last Admin: 03/02/17 22:36 Dose: 1 each Montelukast Sodium (Singulair -) 10 mg PO HS [facility] Last Admin: 03/02/17 21:05 Dose: 10 mg Ondansetron HCl (Zofran Injection) 4 mg IVPUSH Q6H PRN PRN Reason: NAUSEA Pantoprazole Sodium (Protonix -) 40 mg PO DAILY [facility] Last Admin: 03/03/17 11:41 Dose: 40 mg Potassium Chloride (Potassium Chloride Oral Liquid) 40 meq PO ONCE ONE Stop: 03/03/17 13:01 Tramadol HCl (Ultram -) 50 mg PO TID [facility] Stop: 03/07/17 15:44 Last Admin: 03/03/17 06:21 Dose: 50 mg Venlafaxine HCl (Effexor -) 75 mg PO TID [facility] Last Admin: 03/03/17 06:22 Dose: 75 mg Zolpidem Tartrate (Ambien -) 5 mg PO HS PRN PRN Reason: INSOMNIA Last Admin: 03/01/17 22:11 Dose: 5 mg - Objective Vital Signs: Vital Signs Temperature 98.6 F 03/03/17 06:00 Pulse Rate 104 H 03/03/17 06:00 Respiratory Rate 20 03/03/17 06:00 Blood Pressure 138/74 03/03/17 06:00 O2 Sat by Pulse Oximetry (%) 98 03/02/17 08:00 Constitutional: Yes: Anxious Eyes: Yes: Conjunctiva Clear, EOM Intact HENT: Yes: Atraumatic, Normocephalic Neck: Yes: Supple, Trachea Midline Cardiovascular: Yes: Regular Rate and Rhythm, S1 Respiratory: Yes: Regular, CTA Bilaterally Gastrointestinal: Yes: Normal Bowel Sounds Musculoskeletal: Yes: Back Pain, Other (spasams) Edema: No Peripheral Pulses WNL: Yes Neurological: Yes: Alert, Cran Nerves II-XII Intact Psychiatric: Yes: Alert (anxious) Labs: CBC, BMP 03/02/17 07:00 03/02/17 07:00 Problem List - Problems (1) Fall Code(s): W19.XXXA - UNSPECIFIED FALL, INITIAL ENCOUNTER (2) T12 compression fracture Code(s): S22.080A - WEDGE COMPRESSION FRACTURE OF T11-T12 VERTEBRA, INIT (3) Anxiety Code(s): F41.9 - ANXIETY DISORDER, UNSPECIFIED (4) Leukocytosis Code(s): D72.829 - ELEVATED WHITE BLOOD CELL COUNT, UNSPECIFIED (5) HTN (hypertension) Code(s): I10 - ESSENTIAL (PRIMARY) HYPERTENSION (6) GERD (gastroesophageal reflux disease) Code(s): K21.9 - GASTRO-ESOPHAGEAL REFLUX DISEASE WITHOUT ESOPHAGITIS (7) Asthma Code(s): J45.909 - UNSPECIFIED ASTHMA, UNCOMPLICATED (8) Depression Code(s): F32.9 - MAJOR DEPRESSIVE DISORDER, SINGLE EPISODE, UNSPECIFIED (9) Gait abnormality Code(s): R26.9 - UNSPECIFIED ABNORMALITIES OF GAIT AND MOBILITY (10) Back pain Code(s): M54.9 - DORSALGIA, UNSPECIFIED (11) Constipation Code(s): K59.00 - CONSTIPATION, UNSPECIFIED Assessment/Plan (1) Fall Code(s): W19.XXXA - UNSPECIFIED FALL, INITIAL ENCOUNTER (2) T12 compression fracture Code(s): S22.080A - WEDGE COMPRESSION FRACTURE OF T11-T12 VERTEBRA, INIT Neurosurgical consult (3) Anxiety Code(s): F41.9 - ANXIETY DISORDER, UNSPECIFIED (4) Leukocytosis Code(s): D72.829 - ELEVATED WHITE BLOOD CELL COUNT, UNSPECIFIED (5) HTN (hypertension) Code(s): I10 - ESSENTIAL (PRIMARY) HYPERTENSION (6) GERD (gastroesophageal reflux disease) Code(s): K21.9 - GASTRO-ESOPHAGEAL REFLUX DISEASE WITHOUT ESOPHAGITIS (7) Asthma Code(s): J45.909 - UNSPECIFIED ASTHMA, UNCOMPLICATED (8) Depression Code(s): F32.9 - MAJOR DEPRESSIVE DISORDER, SINGLE EPISODE, UNSPECIFIED (9) Gait abnormality Code(s): R26.9 - UNSPECIFIED ABNORMALITIES OF GAIT AND MOBILITY (10) Back pain Code(s): M54.9 - DORSALGIA, UNSPECIFIED (11) Constipation Code(s): K59.00 - CONSTIPATION, UNSPECIFIED Pt had Neurosurgical /Ortho consult done Pt was seen by Psych also Pt had PT evaluation Optimizing pain of the patient Pt did not do MRI
[2017-03-03] MEDS ORDERED: POTASSIUM CHLORIDE ORAL LIQUID 20 MEQ/15 ML PO ONE (13:30)
[2017-03-03 14:21] LABS: BASO % 1.1 % (0-2.0); EOS % 2.6 % (0-4.5); HEMATOCRIT 42.2 % (32.4-45.2); HEMOGLOBIN 13.5 GM/dL (10.7-15.3); LYMPH % 20.7 % (8-40); MCH 28.8 pg (25.7-33.7); MEAN PLT VOLUME 9.3 fl (7.5-11.1); MONO % 8.3 % (3.8-10.2); NEUT % 67.3 % (42.8-82.8); PLATELET COUNT 317 K/MM3 (134-434); RBC 4.68 M/mm3 (3.60-5.2); RDW 14.5 % (11.6-15.6); WHITE BLOOD COUNT 8.6 K/mm3 (4.0-10.0)
[2017-03-03 14:31] LABS: ANION GAP 10 (8-16); BLOOD UREA NITROGEN 12 mg/dL (7-18); CALCIUM 9.5 mg/dL (8.5-10.1); CHLORIDE 102 mmol/L (98-107); CO2 28 mmol/L (21-32); GLUCOSE,RANDOM 210 mg/dL (74-106); POTASSIUM 4.3 mmol/L (3.5-5.1); SODIUM 140 mmol/L (136-145)
[2017-03-03] MEDS: ALPRAZolam 0.25 MG TABLET PO PRN (15:31)
[2017-03-03] MEDS ORDERED: PT OWN MED DRAWER 7, Y5N ONE (21:10)
[2017-03-03] MEDS: MONTELUKAST NA 10 MG TABLET PO SCH (21:14)
[2017-03-03] MEDS: LIDOCAINE PATCH REMOVAL MC SCH (21:16)
[2017-03-04] MEDS ORDERED: PT OWN MED DRAWER 7, Y5N ONE ×4 (02:18→20:40)
[2017-03-04] MEDS: traMADol HCL 50 MG TABLET PO SCH ×3 (05:53→21:40)
[2017-03-04] MEDS: HYDROCORTISONE 1% TOPICAL CREAM 30 GM TUBE TP SCH ×3 (05:53→21:41)
[2017-03-04] MEDS: BACLOFEN 10 MG TABLET (FP) PO SCH ×3 (05:54→21:40)
[2017-03-04] MEDS: GABAPENTIN 300 MG CAPSULE (FP) PO SCH ×3 (05:54→21:40)
[2017-03-04] MEDS: VENLAFAXINE HCL 75 MG TABLET PO SCH ×3 (05:54→21:41)
--- NOTE | 2017-03-04 07:44 | PN ---
Progress Note (short form) - Note Progress Note: NEUROSURGERY Pt reportedly was not able to tolerate MRI C/o R shoulder pain, mid/low back pain PE: AF, VSS HEENT- NC/AT; Cor-RR; Lungs- CTA B; ABd- benign; Ext- no sign of DVT CN- intact; Motor- at least 4+/5 b UE/LE; Sensation- intact LT; DTR- hyporeflexic B Hypersensitive to touch/palpation all over LS spine CT- mild T12 superior endplate depression with minimal (10%) reduction of vertebral column height; no canal involvement; Broad based L4-5 disc bulge; mild facet hypertrophy Acute T12 sup endplate fx with no canal involvement or new deficit Pain meds/PT/rehab On lidoderm patch On neurontin to 300 mg tid As T spine baseline MRI cannot be done will try bracing (pt now agreeable) when OOB DVT prophylaxis F/U LS spine x-rays in 2 weeks to assess T12 vertebral column height If persistent pain could consider pain management and/or kyphoplasty
[2017-03-04] MEDS: ENOXAPARIN NA (PORCINE) 30 MG/0.3 ML DISP.SYRIN SQ SCH (09:43)
[2017-03-04] MEDS: ISOSORBIDE MONONITRATE 30 MG TAB.SR.24H (FP) PO SCH (09:44)
[2017-03-04] MEDS: LIDOCAINE 5% TOPICAL PATCH TP SCH (09:44)
[2017-03-04] MEDS: PANTOPRAZOLE 40 MG TABLET (FP) PO SCH (09:44)
[2017-03-04] MEDS: LISINOPRIL 5 MG TABLET (FP) PO SCH (09:44)
[2017-03-04] MEDS: METOPROLOL TARTRATE 25 MG TABLET (FP) PO SCH (09:45)
--- NOTE | 2017-03-04 16:14 | PN ---
Progress Note, Physician History of Present Illness: stable no new issues calm - Current Medication List Current Medications: Active Medications Albuterol/Ipratropium (Duoneb -) 1 amp NEB Q6H PRN PRN Reason: SHORTNESS OF BREATH Last Admin: 03/03/17 12:15 Dose: 1 amp Alprazolam (Xanax -) 0.25 mg PO Q8H PRN PRN Reason: ANXIETY Last Admin: 03/03/17 15:31 Dose: 0.25 mg Baclofen (Lioresal -) 10 mg PO TID [facility] Last Admin: 03/04/17 13:23 Dose: 10 mg Docusate Sodium (Colace -) 100 mg PO TID PRN PRN Reason: CONSTIPATION Stop: 03/14/17 06:00 Last Admin: 03/01/17 09:35 Dose: 100 mg Enoxaparin Sodium (Lovenox -) 30 mg SQ DAILY [facility] Last Admin: 03/04/17 09:43 Dose: 30 mg Gabapentin (Neurontin -) 300 mg PO TID [facility] Last Admin: 03/04/17 13:23 Dose: 300 mg Hydrocortisone (Hytone 1% Cream -) 1 applic TP TID [facility] Last Admin: 03/04/17 13:23 Dose: 1 applic Isosorbide Mononitrate (Imdur -) 30 mg PO DAILY [facility] Last Admin: 03/04/17 09:44 Dose: 30 mg Lidocaine (Lidoderm Patch -) 1 patch TP DAILY [facility] Last Admin: 03/04/17 09:44 Dose: 1 patch Lisinopril (Prinivil) 5 mg PO DAILY [facility] Last Admin: 03/04/17 09:44 Dose: 5 mg Metoprolol Tartrate (Lopressor -) 25 mg PO DAILY [facility] Last Admin: 03/04/17 09:45 Dose: 25 mg Miscellaneous (Lidoderm Patch Removal) 1 each MC DAILY@2200 [facility] Last Admin: 03/03/17 21:16 Dose: 1 each Montelukast Sodium (Singulair -) 10 mg PO HS [facility] Last Admin: 03/03/17 21:14 Dose: 10 mg Ondansetron HCl (Zofran Injection) 4 mg IVPUSH Q6H PRN PRN Reason: NAUSEA Pantoprazole Sodium (Protonix -) 40 mg PO DAILY [facility] Last Admin: 03/04/17 09:44 Dose: 40 mg Tramadol HCl (Ultram -) 50 mg PO TID [facility] Stop: 03/07/17 15:44 Last Admin: 03/04/17 13:21 Dose: 50 mg Venlafaxine HCl (Effexor -) 75 mg PO TID [facility] Last Admin: 03/04/17 13:23 Dose: 75 mg Zolpidem Tartrate (Ambien -) 5 mg PO HS PRN PRN Reason: INSOMNIA Last Admin: 03/01/17 22:11 Dose: 5 mg - Objective Vital Signs: Vital Signs Temperature 98.7 F 03/04/17 14:57 Pulse Rate 83 03/04/17 14:57 Respiratory Rate 20 03/04/17 14:57 Blood Pressure 150/84 03/04/17 14:57 O2 Sat by Pulse Oximetry (%) 94 L 03/04/17 09:00 Constitutional: Yes: No Distress, Calm Cardiovascular: Yes: Regular Rate and Rhythm Respiratory: Yes: Regular, CTA Bilaterally Gastrointestinal: Yes: Normal Bowel Sounds, Soft Musculoskeletal: Yes: WNL Extremities: Yes: WNL Neurological: Yes: Alert, Oriented Psychiatric: Yes: Alert, Oriented Labs: CBC, BMP 03/03/17 13:50 03/03/17 13:50 Assessment/Plan Problem List - Problems (1) Fall Code(s): W19.XXXA - UNSPECIFIED FALL, INITIAL ENCOUNTER (2) T12 compression fracture Code(s): S22.080A - WEDGE COMPRESSION FRACTURE OF T11-T12 VERTEBRA, INIT (3) Anxiety Code(s): F41.9 - ANXIETY DISORDER, UNSPECIFIED (4) Leukocytosis Code(s): D72.829 - ELEVATED WHITE BLOOD CELL COUNT, UNSPECIFIED (5) HTN (hypertension) Code(s): I10 - ESSENTIAL (PRIMARY) HYPERTENSION (6) GERD (gastroesophageal reflux disease) Code(s): K21.9 - GASTRO-ESOPHAGEAL REFLUX DISEASE WITHOUT ESOPHAGITIS (7) Asthma Code(s): J45.909 - UNSPECIFIED ASTHMA, UNCOMPLICATED (8) Depression Code(s): F32.9 - MAJOR DEPRESSIVE DISORDER, SINGLE EPISODE, UNSPECIFIED (9) Gait abnormality Code(s): R26.9 - UNSPECIFIED ABNORMALITIES OF GAIT AND MOBILITY (10) Back pain Code(s): M54.9 - DORSALGIA, UNSPECIFIED (11) Constipation Code(s): K59.00 - CONSTIPATION, UNSPECIFIED 12 T12 sup endplate fx plan stable off of abx continue physio rest as per primary team
--- NOTE | 2017-03-04 17:48 | PN ---
Progress Note, Physician - Current Medication List Current Medications: Active Medications Albuterol/Ipratropium (Duoneb -) 1 amp NEB Q6H PRN PRN Reason: SHORTNESS OF BREATH Last Admin: 03/03/17 12:15 Dose: 1 amp Alprazolam (Xanax -) 0.25 mg PO Q8H PRN PRN Reason: ANXIETY Last Admin: 03/03/17 15:31 Dose: 0.25 mg Baclofen (Lioresal -) 10 mg PO TID [facility] Last Admin: 03/04/17 13:23 Dose: 10 mg Docusate Sodium (Colace -) 100 mg PO TID PRN PRN Reason: CONSTIPATION Stop: 03/14/17 06:00 Last Admin: 03/01/17 09:35 Dose: 100 mg Enoxaparin Sodium (Lovenox -) 30 mg SQ DAILY [facility] Last Admin: 03/04/17 09:43 Dose: 30 mg Gabapentin (Neurontin -) 300 mg PO TID [facility] Last Admin: 03/04/17 13:23 Dose: 300 mg Hydrocortisone (Hytone 1% Cream -) 1 applic TP TID [facility] Last Admin: 03/04/17 13:23 Dose: 1 applic Isosorbide Mononitrate (Imdur -) 30 mg PO DAILY [facility] Last Admin: 03/04/17 09:44 Dose: 30 mg Lidocaine (Lidoderm Patch -) 1 patch TP DAILY [facility] Last Admin: 03/04/17 09:44 Dose: 1 patch Lisinopril (Prinivil) 5 mg PO DAILY [facility] Last Admin: 03/04/17 09:44 Dose: 5 mg Metoprolol Tartrate (Lopressor -) 25 mg PO DAILY [facility] Last Admin: 03/04/17 09:45 Dose: 25 mg Miscellaneous (Lidoderm Patch Removal) 1 each MC DAILY@2200 [facility] Last Admin: 03/03/17 21:16 Dose: 1 each Montelukast Sodium (Singulair -) 10 mg PO HS [facility] Last Admin: 03/03/17 21:14 Dose: 10 mg Ondansetron HCl (Zofran Injection) 4 mg IVPUSH Q6H PRN PRN Reason: NAUSEA Pantoprazole Sodium (Protonix -) 40 mg PO DAILY [facility] Last Admin: 03/04/17 09:44 Dose: 40 mg Tramadol HCl (Ultram -) 50 mg PO TID [facility] Stop: 03/07/17 15:44 Last Admin: 03/04/17 13:21 Dose: 50 mg Venlafaxine HCl (Effexor -) 75 mg PO TID [facility] Last Admin: 03/04/17 13:23 Dose: 75 mg Zolpidem Tartrate (Ambien -) 5 mg PO HS PRN PRN Reason: INSOMNIA Last Admin: 03/01/17 22:11 Dose: 5 mg - Objective Vital Signs: Vital Signs Temperature 98.7 F 03/04/17 14:57 Pulse Rate 83 03/04/17 14:57 Respiratory Rate 20 03/04/17 14:57 Blood Pressure 150/84 03/04/17 14:57 O2 Sat by Pulse Oximetry (%) 94 L 03/04/17 09:00 Labs: CBC, BMP 03/03/17 13:50 03/03/17 13:50 Problem List - Problems (1) Fall Code(s): W19.XXXA - UNSPECIFIED FALL, INITIAL ENCOUNTER (2) T12 compression fracture Code(s): S22.080A - WEDGE COMPRESSION FRACTURE OF T11-T12 VERTEBRA, INIT (3) Anxiety Code(s): F41.9 - ANXIETY DISORDER, UNSPECIFIED (4) Leukocytosis Code(s): D72.829 - ELEVATED WHITE BLOOD CELL COUNT, UNSPECIFIED (5) HTN (hypertension) Code(s): I10 - ESSENTIAL (PRIMARY) HYPERTENSION (6) GERD (gastroesophageal reflux disease) Code(s): K21.9 - GASTRO-ESOPHAGEAL REFLUX DISEASE WITHOUT ESOPHAGITIS (7) Asthma Code(s): J45.909 - UNSPECIFIED ASTHMA, UNCOMPLICATED (8) Depression Code(s): F32.9 - MAJOR DEPRESSIVE DISORDER, SINGLE EPISODE, UNSPECIFIED (9) Gait abnormality Code(s): R26.9 - UNSPECIFIED ABNORMALITIES OF GAIT AND MOBILITY (10) Back pain Code(s): M54.9 - DORSALGIA, UNSPECIFIED (11) Constipation Code(s): K59.00 - CONSTIPATION, UNSPECIFIED
[2017-03-04] MEDS: ZOLPIDEM TARTRATE 5 MG TABLET PO PRN (21:40)
[2017-03-04] MEDS: LIDOCAINE PATCH REMOVAL MC SCH (21:41)
[2017-03-04] MEDS: MONTELUKAST NA 10 MG TABLET PO SCH (21:41)
[2017-03-05] MEDS: traMADol HCL 50 MG TABLET PO SCH ×3 (05:42→21:12)
[2017-03-05] MEDS: BACLOFEN 10 MG TABLET (FP) PO SCH ×3 (05:43→21:12)
[2017-03-05] MEDS: HYDROCORTISONE 1% TOPICAL CREAM 30 GM TUBE TP SCH ×3 (05:43→21:13)
[2017-03-05] MEDS: GABAPENTIN 300 MG CAPSULE (FP) PO SCH ×3 (05:43→21:12)
[2017-03-05] MEDS: VENLAFAXINE HCL 75 MG TABLET PO SCH ×3 (05:43→21:13)
[2017-03-05] MEDS ORDERED: ZOLPIDEM TARTRATE 5 MG TABLET PO PRN (06:06)
[2017-03-05] MEDS ORDERED: PT OWN MED DRAWER 7, Y5N ONE ×4 (09:36→20:52)
[2017-03-05] MEDS: ALPRAZolam 0.25 MG TABLET PO PRN (09:39)
[2017-03-05] MEDS: ISOSORBIDE MONONITRATE 30 MG TAB.SR.24H (FP) PO SCH (09:39)
[2017-03-05] MEDS: METOPROLOL TARTRATE 25 MG TABLET (FP) PO SCH (09:39)
[2017-03-05] MEDS: PANTOPRAZOLE 40 MG TABLET (FP) PO SCH (09:40)
[2017-03-05] MEDS: LISINOPRIL 5 MG TABLET (FP) PO SCH (09:40)
[2017-03-05] MEDS: ENOXAPARIN NA (PORCINE) 30 MG/0.3 ML DISP.SYRIN SQ SCH (09:40)
[2017-03-05] MEDS: DOCUSATE SODIUM 100 MG CAPSULE (FP) PO PRN (09:40)
[2017-03-05] MEDS: LIDOCAINE 5% TOPICAL PATCH TP SCH (09:40)
--- NOTE | 2017-03-05 10:12 | PN ---
Progress Note (short form) - Note Progress Note: NEUROSURGERY Pt not able to tolerate closed MRI In bed PE: AF, VSS HEENT- NC/AT; Cor-RR; Lungs- CTA B; ABd- benign; Ext- no sign of DVT CN- intact; Motor- at least 4+/5 b UE/LE; Sensation- intact LT; DTR- hyporeflexic B LS spine CT- mild T12 superior endplate depression with minimal (10%) reduction of vertebral column height; no canal involvement; Broad based L4-5 disc bulge; mild facet hypertrophy Acute T12 sup endplate fx with no canal involvement or new deficit Pain meds/PT/rehab On lidoderm patch On neurontin to 300 mg tid Bracing for support/fx when OOB, as pt could not tolerate MRI to assess progression (or not) of T12 fx DVT prophylaxis F/U LS spine x-rays in 2 weeks to assess T12 vertebral column height If persistent pain could consider pain management and/or kyphoplasty D/w staff/RN
--- NOTE | 2017-03-05 12:21 | PN ---
Progress Note, Physician History of Present Illness: stable no new issues anxious - Current Medication List Current Medications: Active Medications Alprazolam (Xanax -) 0.25 mg PO Q8H PRN PRN Reason: ANXIETY Last Admin: 03/05/17 09:39 Dose: 0.25 mg Baclofen (Lioresal -) 10 mg PO TID [facility] Last Admin: 03/05/17 05:43 Dose: 10 mg Docusate Sodium (Colace -) 100 mg PO TID PRN PRN Reason: CONSTIPATION Stop: 03/14/17 06:00 Last Admin: 03/05/17 09:40 Dose: 100 mg Enoxaparin Sodium (Lovenox -) 30 mg SQ DAILY [facility] Last Admin: 03/05/17 09:40 Dose: 30 mg Gabapentin (Neurontin -) 300 mg PO TID [facility] Last Admin: 03/05/17 05:43 Dose: 300 mg Hydrocortisone (Hytone 1% Cream -) 1 applic TP TID [facility] Last Admin: 03/05/17 05:43 Dose: 1 applic Isosorbide Mononitrate (Imdur -) 30 mg PO DAILY [facility] Last Admin: 03/05/17 09:39 Dose: 30 mg Lidocaine (Lidoderm Patch -) 1 patch TP DAILY [facility] Last Admin: 03/05/17 09:40 Dose: 1 patch Lisinopril (Prinivil) 5 mg PO DAILY [facility] Last Admin: 03/05/17 09:40 Dose: 5 mg Metoprolol Tartrate (Lopressor -) 25 mg PO DAILY [facility] Last Admin: 03/05/17 09:39 Dose: 25 mg Miscellaneous (Lidoderm Patch Removal) 1 each MC DAILY@2200 [facility] Last Admin: 03/04/17 21:41 Dose: 1 each Montelukast Sodium (Singulair -) 10 mg PO HS [facility] Last Admin: 03/04/17 21:41 Dose: 10 mg Ondansetron HCl (Zofran Injection) 4 mg IVPUSH Q6H PRN PRN Reason: NAUSEA Pantoprazole Sodium (Protonix -) 40 mg PO DAILY [facility] Last Admin: 03/05/17 09:40 Dose: 40 mg Tramadol HCl (Ultram -) 50 mg PO TID [facility] Stop: 03/07/17 15:44 Last Admin: 03/05/17 05:42 Dose: 50 mg Venlafaxine HCl (Effexor -) 75 mg PO TID [facility] Last Admin: 03/05/17 05:43 Dose: 75 mg - Objective Vital Signs: Vital Signs Temperature 98.7 F 03/05/17 08:48 Pulse Rate 94 H 03/05/17 08:48 Respiratory Rate 20 03/05/17 08:49 Blood Pressure 158/92 03/05/17 08:48 O2 Sat by Pulse Oximetry (%) 95 03/05/17 08:49 Constitutional: Yes: No Distress, Calm Cardiovascular: Yes: Regular Rate and Rhythm Respiratory: Yes: Regular, CTA Bilaterally Gastrointestinal: Yes: Normal Bowel Sounds, Soft Musculoskeletal: Yes: WNL Extremities: Yes: WNL Labs: CBC, BMP 03/03/17 13:50 03/03/17 13:50 Assessment/Plan Problem List - Problems (1) Fall Code(s): W19.XXXA - UNSPECIFIED FALL, INITIAL ENCOUNTER (2) T12 compression fracture Code(s): S22.080A - WEDGE COMPRESSION FRACTURE OF T11-T12 VERTEBRA, INIT (3) Anxiety Code(s): F41.9 - ANXIETY DISORDER, UNSPECIFIED (4) Leukocytosis Code(s): D72.829 - ELEVATED WHITE BLOOD CELL COUNT, UNSPECIFIED (5) HTN (hypertension) Code(s): I10 - ESSENTIAL (PRIMARY) HYPERTENSION (6) GERD (gastroesophageal reflux disease) Code(s): K21.9 - GASTRO-ESOPHAGEAL REFLUX DISEASE WITHOUT ESOPHAGITIS (7) Asthma Code(s): J45.909 - UNSPECIFIED ASTHMA, UNCOMPLICATED (8) Depression Code(s): F32.9 - MAJOR DEPRESSIVE DISORDER, SINGLE EPISODE, UNSPECIFIED (9) Gait abnormality Code(s): R26.9 - UNSPECIFIED ABNORMALITIES OF GAIT AND MOBILITY (10) Back pain Code(s): M54.9 - DORSALGIA, UNSPECIFIED (11) Constipation Code(s): K59.00 - CONSTIPATION, UNSPECIFIED 12 T12 sup endplate fx plan stable off of abx continue physio rest as per primary team and neurosurgery
--- NOTE | 2017-03-05 13:12 | PN ---
Progress Note, Physician - Current Medication List Current Medications: Active Medications Alprazolam (Xanax -) 0.25 mg PO Q8H PRN PRN Reason: ANXIETY Last Admin: 03/05/17 09:39 Dose: 0.25 mg Baclofen (Lioresal -) 10 mg PO TID [facility] Last Admin: 03/05/17 13:10 Dose: 10 mg Docusate Sodium (Colace -) 100 mg PO TID PRN PRN Reason: CONSTIPATION Stop: 03/14/17 06:00 Last Admin: 03/05/17 09:40 Dose: 100 mg Enoxaparin Sodium (Lovenox -) 30 mg SQ DAILY [facility] Last Admin: 03/05/17 09:40 Dose: 30 mg Gabapentin (Neurontin -) 300 mg PO TID [facility] Last Admin: 03/05/17 13:10 Dose: 300 mg Hydrocortisone (Hytone 1% Cream -) 1 applic TP TID [facility] Last Admin: 03/05/17 13:09 Dose: 1 applic Isosorbide Mononitrate (Imdur -) 30 mg PO DAILY [facility] Last Admin: 03/05/17 09:39 Dose: 30 mg Lidocaine (Lidoderm Patch -) 1 patch TP DAILY [facility] Last Admin: 03/05/17 09:40 Dose: 1 patch Lisinopril (Prinivil) 5 mg PO DAILY [facility] Last Admin: 03/05/17 09:40 Dose: 5 mg Metoprolol Tartrate (Lopressor -) 25 mg PO DAILY [facility] Last Admin: 03/05/17 09:39 Dose: 25 mg Miscellaneous (Lidoderm Patch Removal) 1 each MC DAILY@2200 [facility] Last Admin: 03/04/17 21:41 Dose: 1 each Montelukast Sodium (Singulair -) 10 mg PO HS [facility] Last Admin: 03/04/17 21:41 Dose: 10 mg Ondansetron HCl (Zofran Injection) 4 mg IVPUSH Q6H PRN PRN Reason: NAUSEA Pantoprazole Sodium (Protonix -) 40 mg PO DAILY [facility] Last Admin: 03/05/17 09:40 Dose: 40 mg Tramadol HCl (Ultram -) 50 mg PO TID [facility] Stop: 03/07/17 15:44 Last Admin: 03/05/17 13:10 Dose: 50 mg Venlafaxine HCl (Effexor -) 75 mg PO TID [facility] Last Admin: 03/05/17 13:09 Dose: 75 mg - Objective Vital Signs: Vital Signs Temperature 98.7 F 03/05/17 08:48 Pulse Rate 94 H 03/05/17 08:48 Respiratory Rate 20 03/05/17 08:49 Blood Pressure 158/92 03/05/17 08:48 O2 Sat by Pulse Oximetry (%) 95 03/05/17 08:49 Labs: CBC, BMP 03/03/17 13:50 03/03/17 13:50 Problem List - Problems (1) Fall Code(s): W19.XXXA - UNSPECIFIED FALL, INITIAL ENCOUNTER (2) T12 compression fracture Code(s): S22.080A - WEDGE COMPRESSION FRACTURE OF T11-T12 VERTEBRA, INIT (3) Anxiety Code(s): F41.9 - ANXIETY DISORDER, UNSPECIFIED (4) Leukocytosis Code(s): D72.829 - ELEVATED WHITE BLOOD CELL COUNT, UNSPECIFIED (5) HTN (hypertension) Code(s): I10 - ESSENTIAL (PRIMARY) HYPERTENSION (6) GERD (gastroesophageal reflux disease) Code(s): K21.9 - GASTRO-ESOPHAGEAL REFLUX DISEASE WITHOUT ESOPHAGITIS (7) Asthma Code(s): J45.909 - UNSPECIFIED ASTHMA, UNCOMPLICATED (8) Depression Code(s): F32.9 - MAJOR DEPRESSIVE DISORDER, SINGLE EPISODE, UNSPECIFIED (9) Gait abnormality Code(s): R26.9 - UNSPECIFIED ABNORMALITIES OF GAIT AND MOBILITY (10) Back pain Code(s): M54.9 - DORSALGIA, UNSPECIFIED (11) Constipation Code(s): K59.00 - CONSTIPATION, UNSPECIFIED
--- NOTE | 2017-03-05 13:17 | DS ---
Physical Examination Vital Signs: Vital Signs Temperature 98.7 F 03/05/17 08:48 Pulse Rate 94 H 03/05/17 08:48 Respiratory Rate 20 03/05/17 08:49 Blood Pressure 158/92 03/05/17 08:48 O2 Sat by Pulse Oximetry (%) 95 03/05/17 08:49 Constitutional: Yes: Anxious Eyes: Yes: Conjunctiva Clear, EOM Intact HENT: Yes: Atraumatic, Normocephalic Neck: Yes: Supple, Trachea Midline Cardiovascular: Yes: Regular Rate and Rhythm, S1, S2 Respiratory: Yes: Regular, CTA Bilaterally Gastrointestinal: Yes: Normal Bowel Sounds, Soft Musculoskeletal: Yes: Back Pain, Joint Stiffness Edema: No Peripheral Pulses WNL: Yes Neurological: Yes: Alert, Cran Nerves II-XII Intact Psychiatric: Yes: Alert, Agitated Labs: CBC, BMP 03/03/17 13:50 03/03/17 13:50 Discharge Summary Reason For Visit: ANXIETY,BACK PAIN Current Active Problems Anxiety (Acute) Asthma (Acute) Back pain (Acute) Constipation (Acute) Depression (Acute) Fall (Acute) GERD (gastroesophageal reflux disease) (Acute) Gait abnormality (Acute) HTN (hypertension) (Acute) Leukocytosis (Acute) T12 compression fracture (Acute) Hospital Course: Pt had T12 # after fall Pt seen by Neurosugery and Spine also Pt is refusing the Rehab and Kyphoplasty Pt wanted to go home Pt was warned highrisk for falls Pt also had Physiotry consult also Condition: Stable - Instructions Referrals: Gale Amador MD [Staff Physician] - - Home Medications Comprehensive Discharge Medication List: Ambulatory Orders Isosorbide Mononitrate [Imdur -] 30 mg PO DAILY 02/14/17 Lisinopril [Prinivil] 5 mg PO DAILY 02/14/17 Metoprolol Tartrate [Lopressor -] 25 mg PO DAILY 02/14/17 Montelukast Na [Singulair -] 10 mg PO HS 02/14/17 Omeprazole 20 mg PO DAILY 02/14/17 Venlafaxine HCl ER [Effexor Xr -] 75 mg PO TID 02/14/17 Hydroxyzine Pamoate [Vistaril -] 25 mg PO TID PRN #15 capsule 02/19/17 Baclofan 10 mg PO TID [facility] 300mg PO daily Gabapentin 300mg TID lidocaine ptch 5% daily
[2017-03-05] MEDS ORDERED: SODIUM PHOSPHATE/NA BIPHOS 133 ML ENEMA RC ONE (15:45)
[2017-03-05] MEDS ORDERED: MAGNESIUM HYDROX 2400MG/30ML ORAL SUSPENSION 30 ML CUP PO PRN (20:10)
[2017-03-05] MEDS: LIDOCAINE PATCH REMOVAL MC SCH (21:14)
[2017-03-05] MEDS: MONTELUKAST NA 10 MG TABLET PO SCH (21:59)
[2017-03-06] MEDS: traMADol HCL 50 MG TABLET PO SCH ×2 (05:27→13:15)
[2017-03-06] MEDS: HYDROCORTISONE 1% TOPICAL CREAM 30 GM TUBE TP SCH ×2 (05:28→13:15)
[2017-03-06] MEDS: BACLOFEN 10 MG TABLET (FP) PO SCH ×2 (05:28→13:15)
[2017-03-06] MEDS: GABAPENTIN 300 MG CAPSULE (FP) PO SCH ×2 (05:28→13:15)
[2017-03-06] MEDS: VENLAFAXINE HCL 75 MG TABLET PO SCH ×2 (06:08→13:15)
--- NOTE | 2017-03-06 08:25 | PN ---
Progress Note (short form) - Note Progress Note: NEUROSURGERY Feels less pain today In bed PE: AF, VSS HEENT- NC/AT; Cor-RR; Lungs- CTA B; ABd- benign; Ext- no sign of DVT CN- intact; Motor- at least 4+/5 B UE/LE; Sensation- intact LT; DTR- hyporeflexic B Acute T12 sup endplate fx with no canal involvement or new deficit Pain meds/PT/rehab On lidoderm patch On neurontin to 300 mg tid Bracing for support/fx when OOB, as pt could not tolerate MRI to accurately assess progression (or not) of T12 fx DVT prophylaxis F/U LS spine x-rays in 1 week to assess T12 vertebral column height If persistent pain could consider pain management and/or kyphoplasty
[2017-03-06] MEDS: ISOSORBIDE MONONITRATE 30 MG TAB.SR.24H (FP) PO SCH (09:44)
[2017-03-06] MEDS: METOPROLOL TARTRATE 25 MG TABLET (FP) PO SCH (09:44)
[2017-03-06] MEDS: LISINOPRIL 5 MG TABLET (FP) PO SCH (09:44)
[2017-03-06] MEDS: ALPRAZolam 0.25 MG TABLET PO PRN (09:44)
[2017-03-06] MEDS: ENOXAPARIN NA (PORCINE) 30 MG/0.3 ML DISP.SYRIN SQ SCH (09:44)
[2017-03-06] MEDS: LIDOCAINE 5% TOPICAL PATCH TP SCH (09:44)
[2017-03-06] MEDS: PANTOPRAZOLE 40 MG TABLET (FP) PO SCH (09:44)
--- NOTE | 2017-03-06 11:01 | PN ---
Progress Note, Physician Chief Complaint: The patient is a 76 year old female with past medical history of hypertension, GERD, asthma, anxiety, depression and chronic back pain who presents to the ED with 1 day of worsening back pain. She reports her pain is in her lower back and states it radiates down her bilateral lower extremities and up her spine. The patient states her pain is causing her to be bedridden. She denies any bowel or bladder incontinence. She denies trauma. She also reports palpitations since running out of her klonipin 1 week ago. Pt is having the brace today History of Present Illness: Pt was seen By Neurosugeon/Ortho also Pt is relatively better No Fever No SOB Pt is having brace - Current Medication List Current Medications: Active Medications Alprazolam (Xanax -) 0.25 mg PO Q8H PRN PRN Reason: ANXIETY Last Admin: 03/06/17 09:44 Dose: 0.25 mg Baclofen (Lioresal -) 10 mg PO TID [facility] Last Admin: 03/06/17 05:28 Dose: 10 mg Docusate Sodium (Colace -) 100 mg PO TID PRN PRN Reason: CONSTIPATION Stop: 03/14/17 06:00 Last Admin: 03/05/17 09:40 Dose: 100 mg Enoxaparin Sodium (Lovenox -) 30 mg SQ DAILY [facility] Last Admin: 03/06/17 09:44 Dose: 30 mg Gabapentin (Neurontin -) 300 mg PO TID [facility] Last Admin: 03/06/17 05:28 Dose: 300 mg Hydrocortisone (Hytone 1% Cream -) 1 applic TP TID [facility] Last Admin: 03/06/17 05:28 Dose: 1 applic Isosorbide Mononitrate (Imdur -) 30 mg PO DAILY [facility] Last Admin: 03/06/17 09:44 Dose: 30 mg Lidocaine (Lidoderm Patch -) 1 patch TP DAILY [facility] Last Admin: 03/06/17 09:44 Dose: 1 patch Lisinopril (Prinivil) 5 mg PO DAILY [facility] Last Admin: 03/06/17 09:44 Dose: 5 mg Magnesium Hydroxide (Milk Of Magnesia -) 30 ml PO PRN PRN PRN Reason: CONSTIPATION Metoprolol Tartrate (Lopressor -) 25 mg PO DAILY [facility] Last Admin: 03/06/17 09:44 Dose: 25 mg Miscellaneous (Lidoderm Patch Removal) 1 each MC DAILY@2200 [facility] Last Admin: 03/05/17 21:14 Dose: 1 each Montelukast Sodium (Singulair -) 10 mg PO HS [facility] Last Admin: 03/05/17 21:59 Dose: 10 mg Ondansetron HCl (Zofran Injection) 4 mg IVPUSH Q6H PRN PRN Reason: NAUSEA Pantoprazole Sodium (Protonix -) 40 mg PO DAILY [facility] Last Admin: 03/06/17 09:44 Dose: 40 mg Tramadol HCl (Ultram -) 50 mg PO TID [facility] Stop: 03/07/17 15:44 Last Admin: 03/06/17 05:27 Dose: 50 mg Venlafaxine HCl (Effexor -) 75 mg PO TID [facility] Last Admin: 03/06/17 06:08 Dose: 75 mg Zolpidem Tartrate (Ambien -) 5 mg PO HS PRN PRN Reason: INSOMNIA Last Admin: 03/05/17 21:12 Dose: 5 mg - Objective Vital Signs: Vital Signs Temperature 98.6 F 03/06/17 08:32 Pulse Rate 98 H 03/06/17 08:32 Respiratory Rate 20 03/06/17 08:34 Blood Pressure 147/79 03/06/17 08:32 O2 Sat by Pulse Oximetry (%) 96 03/06/17 08:34 Constitutional: Yes: Anxious Eyes: Yes: Conjunctiva Clear, EOM Intact HENT: Yes: Atraumatic, Normocephalic Neck: Yes: Supple, Trachea Midline Cardiovascular: Yes: Regular Rate and Rhythm, S1, S2 Respiratory: Yes: Regular, CTA Bilaterally Gastrointestinal: Yes: Normal Bowel Sounds, Soft Musculoskeletal: Yes: Joint Stiffness Edema: No Peripheral Pulses WNL: Yes Neurological: Yes: Alert, Cran Nerves II-XII Intact Labs: CBC, BMP 03/03/17 13:50 03/03/17 13:50 Problem List - Problems (1) Fall Code(s): W19.XXXA - UNSPECIFIED FALL, INITIAL ENCOUNTER (2) T12 compression fracture Code(s): S22.080A - WEDGE COMPRESSION FRACTURE OF T11-T12 VERTEBRA, INIT (3) Anxiety Code(s): F41.9 - ANXIETY DISORDER, UNSPECIFIED (4) Leukocytosis Code(s): D72.829 - ELEVATED WHITE BLOOD CELL COUNT, UNSPECIFIED (5) HTN (hypertension) Code(s): I10 - ESSENTIAL (PRIMARY) HYPERTENSION (6) GERD (gastroesophageal reflux disease) Code(s): K21.9 - GASTRO-ESOPHAGEAL REFLUX DISEASE WITHOUT ESOPHAGITIS (7) Asthma Code(s): J45.909 - UNSPECIFIED ASTHMA, UNCOMPLICATED (8) Depression Code(s): F32.9 - MAJOR DEPRESSIVE DISORDER, SINGLE EPISODE, UNSPECIFIED (9) Gait abnormality Code(s): R26.9 - UNSPECIFIED ABNORMALITIES OF GAIT AND MOBILITY (10) Back pain Code(s): M54.9 - DORSALGIA, UNSPECIFIED (11) Constipation Code(s): K59.00 - CONSTIPATION, UNSPECIFIED Assessment/Plan (1) Fall Code(s): W19.XXXA - UNSPECIFIED FALL, INITIAL ENCOUNTER (2) T12 compression fracture Code(s): S22.080A - WEDGE COMPRESSION FRACTURE OF T11-T12 VERTEBRA, INIT Neurosurgical consult (3) Anxiety Code(s): F41.9 - ANXIETY DISORDER, UNSPECIFIED (4) Leukocytosis Code(s): D72.829 - ELEVATED WHITE BLOOD CELL COUNT, UNSPECIFIED (5) HTN (hypertension) Code(s): I10 - ESSENTIAL (PRIMARY) HYPERTENSION (6) GERD (gastroesophageal reflux disease) Code(s): K21.9 - GASTRO-ESOPHAGEAL REFLUX DISEASE WITHOUT ESOPHAGITIS (7) Asthma Code(s): J45.909 - UNSPECIFIED ASTHMA, UNCOMPLICATED (8) Depression Code(s): F32.9 - MAJOR DEPRESSIVE DISORDER, SINGLE EPISODE, UNSPECIFIED (9) Gait abnormality Code(s): R26.9 - UNSPECIFIED ABNORMALITIES OF GAIT AND MOBILITY (10) Back pain Code(s): M54.9 - DORSALGIA, UNSPECIFIED (11) Constipation Code(s): K59.00 - CONSTIPATION, UNSPECIFIED Pt had Neurosurgical /Ortho consult done Pt was seen by Psych also Pt will have PT evaluation Optimizing pain of the patient Pt had Brace today Pt will follow with neurosurgeon and Dr Jean
--- NOTE | 2017-03-06 11:03 | PN ---
Progress Note, Physician History of Present Illness: feeling better today still very anxious - Current Medication List Current Medications: Active Medications Alprazolam (Xanax -) 0.25 mg PO Q8H PRN PRN Reason: ANXIETY Last Admin: 03/06/17 09:44 Dose: 0.25 mg Baclofen (Lioresal -) 10 mg PO TID [facility] Last Admin: 03/06/17 05:28 Dose: 10 mg Docusate Sodium (Colace -) 100 mg PO TID PRN PRN Reason: CONSTIPATION Stop: 03/14/17 06:00 Last Admin: 03/05/17 09:40 Dose: 100 mg Enoxaparin Sodium (Lovenox -) 30 mg SQ DAILY [facility] Last Admin: 03/06/17 09:44 Dose: 30 mg Gabapentin (Neurontin -) 300 mg PO TID [facility] Last Admin: 03/06/17 05:28 Dose: 300 mg Hydrocortisone (Hytone 1% Cream -) 1 applic TP TID [facility] Last Admin: 03/06/17 05:28 Dose: 1 applic Isosorbide Mononitrate (Imdur -) 30 mg PO DAILY [facility] Last Admin: 03/06/17 09:44 Dose: 30 mg Lidocaine (Lidoderm Patch -) 1 patch TP DAILY [facility] Last Admin: 03/06/17 09:44 Dose: 1 patch Lisinopril (Prinivil) 5 mg PO DAILY [facility] Last Admin: 03/06/17 09:44 Dose: 5 mg Magnesium Hydroxide (Milk Of Magnesia -) 30 ml PO PRN PRN PRN Reason: CONSTIPATION Metoprolol Tartrate (Lopressor -) 25 mg PO DAILY [facility] Last Admin: 03/06/17 09:44 Dose: 25 mg Miscellaneous (Lidoderm Patch Removal) 1 each MC DAILY@2200 [facility] Last Admin: 03/05/17 21:14 Dose: 1 each Montelukast Sodium (Singulair -) 10 mg PO HS [facility] Last Admin: 03/05/17 21:59 Dose: 10 mg Ondansetron HCl (Zofran Injection) 4 mg IVPUSH Q6H PRN PRN Reason: NAUSEA Pantoprazole Sodium (Protonix -) 40 mg PO DAILY [facility] Last Admin: 03/06/17 09:44 Dose: 40 mg Tramadol HCl (Ultram -) 50 mg PO TID [facility] Stop: 03/07/17 15:44 Last Admin: 03/06/17 05:27 Dose: 50 mg Venlafaxine HCl (Effexor -) 75 mg PO TID [facility] Last Admin: 03/06/17 06:08 Dose: 75 mg Zolpidem Tartrate (Ambien -) 5 mg PO HS PRN PRN Reason: INSOMNIA Last Admin: 03/05/17 21:12 Dose: 5 mg - Objective Vital Signs: Vital Signs Temperature 98.6 F 03/06/17 08:32 Pulse Rate 98 H 03/06/17 08:32 Respiratory Rate 20 03/06/17 08:34 Blood Pressure 147/79 03/06/17 08:32 O2 Sat by Pulse Oximetry (%) 96 03/06/17 08:34 Constitutional: Yes: Calm, Mild Distress Cardiovascular: Yes: Regular Rate and Rhythm Respiratory: Yes: Regular, CTA Bilaterally Gastrointestinal: Yes: Normal Bowel Sounds, Soft Musculoskeletal: Yes: Back Pain Labs: CBC, BMP 03/03/17 13:50 03/03/17 13:50 Assessment/Plan Problem List - Problems (1) Fall Code(s): W19.XXXA - UNSPECIFIED FALL, INITIAL ENCOUNTER (2) T12 compression fracture Code(s): S22.080A - WEDGE COMPRESSION FRACTURE OF T11-T12 VERTEBRA, INIT (3) Anxiety Code(s): F41.9 - ANXIETY DISORDER, UNSPECIFIED (4) Leukocytosis Code(s): D72.829 - ELEVATED WHITE BLOOD CELL COUNT, UNSPECIFIED (5) HTN (hypertension) Code(s): I10 - ESSENTIAL (PRIMARY) HYPERTENSION (6) GERD (gastroesophageal reflux disease) Code(s): K21.9 - GASTRO-ESOPHAGEAL REFLUX DISEASE WITHOUT ESOPHAGITIS (7) Asthma Code(s): J45.909 - UNSPECIFIED ASTHMA, UNCOMPLICATED (8) Depression Code(s): F32.9 - MAJOR DEPRESSIVE DISORDER, SINGLE EPISODE, UNSPECIFIED (9) Gait abnormality Code(s): R26.9 - UNSPECIFIED ABNORMALITIES OF GAIT AND MOBILITY (10) Back pain Code(s): M54.9 - DORSALGIA, UNSPECIFIED (11) Constipation Code(s): K59.00 - CONSTIPATION, UNSPECIFIED 12 T12 sup endplate fx plan continue as per neurosurgery physio rest as per primary team
[2017-03-06] MEDS ORDERED: PT OWN MED DRAWER 7, Y5N ONE (13:13)
[2017-03-06 15:21] VITALS: BP 122/95; PULSE 131; TEMP 97.9
== END 2017-03-06 18:36 | disposition home or self-care (01) | DRG 552 ==
LOC: JER 16:44 → JERBED 21:12 → UNDOADMOB 21:12 → JERBED 02-28 01:58 → J6S 02-28 02:38 → OBSVTOIN 02-28 13:21
PROVIDERS: ADMIT Internal Medicine; ATTEND Internal Medicine
DX: S22.080A Wedge compression fracture of T11-T12 vertebra, initial encounter for closed fracture (principal); N39.0 Urinary tract infection, site not specified; F41.8 Other specified anxiety disorders; J45.909 Unspecified asthma, uncomplicated; I10 Essential (primary) hypertension; K21.9 Gastro-esophageal reflux disease without esophagitis; E87.6 Hypokalemia; R11.0 Nausea; K59.09 Other constipation; G62.89 Other specified polyneuropathies; M54.5 Low back pain; F17.210 Nicotine dependence, cigarettes, uncomplicated; D72.829 Elevated white blood cell count, unspecified; R26.9 Unspecified abnormalities of gait and mobility; W01.0XXA Fall on same level from slipping, tripping and stumbling without subsequent striking against object, initial encounter; Y92.098 Other place in other non-institutional residence as the place of occurrence of the external cause
CPT/HCPCS: 36415; 72131-TC; 80048; 80053; 81003; 81015; 85025; 85027; 87086; 93005; 93010; 94640; 97116-GP; 97161-GP; 99282-25; G0378; J0475